=== PATIENT | female | born 1985 | race Caucasian/White ===

== ENCOUNTER 2016-09-14 09:45 | Observation (INO) | payer MEDICAID ==
[2016-09-14] VITALS (12 sets, daily range): BP systolic 109–132; BP diastolic 53–68
[~2016-09-14] VITALS: Ht 167.6 cm; Wt 94.4 kg
[~2016-09-14 09:45] MED LIST: ACHD5005 PO; GLYB5TAB6 PO; IBP600T1 PO; METF-380 PO; METF1000 PO; PREN1TAB71 PO; SERT50TA2 PO
[2016-09-14] MEDS ORDERED: ACETAMINOPHEN 500 MG TAB (TYLENOL) PO PRN ×2 (11:45→22:45)
[2016-09-14] MEDS ORDERED: CATHETER FLUSH 10 ML SYR IV PRN (11:45)
[2016-09-14] MEDS ORDERED: LACTATED RINGERS 1,000 ML IV SCH (11:45)
--- NOTE | 2016-09-14 12:29 | Diagnostic Imaging Report ---
PROCEDURE: US Gallbladder. TECHNIQUE: Multiple real-time grayscale images were obtained over the right upper quadrant in various projections. INDICATION: Right upper quadrant pain. COMPARISON: None available. FINDINGS: The liver is normal in size and echogenicity. There is no focal hepatic mass. The main portal vein is patent with antegrade flow. The gallbladder is distended without gallstones, wall thickening, or pericholecystic fluid. The common bile duct was not visualized. No sonographic Ballard sign. Pancreas is obscured by overlying bowel gas. The right kidney is normal in size. No hydronephrosis, shadowing calculi, or suspicious mass lesion. IMPRESSION: 1. Normal gallbladder. 2. No intrahepatic ductal dilatation. Common bile duct was visualized surrounding bowel gas. 3. Normal right kidney without hydronephrosis. Dictated by: Dictated on workstation # [id number]
[2016-09-14 13:02] LABS: ALANINE AMINOTRANSFERASE 13 U/L (0-55); ALBUMIN 3.3 G/DL (3.2-4.5); ANION GAP 11 MMOL/L (5-14); ASPARTATE AMINO TRANSFERASE 22 U/L (5-34); BILIRUBIN,TOTAL 0.5 MG/DL (0.1-1.0); BLOOD UREA NITROGEN 11 MG/DL (7-18); BUN/CREATININE RATIO 19; CALCIUM 8.8 MG/DL (8.5-10.1); CARBON DIOXIDE 17 MMOL/L (21-32); CHLORIDE 105 MMOL/L (98-107); CREATININE SERUM 0.59 MG/DL (0.60-1.30); GFR ESTIMATED > 60; GLUCOSE 77 MG/DL (70-105); POTASSIUM 4.2 MMOL/L (3.6-5.0); SODIUM 133 MMOL/L (135-145); TOTAL PROTEIN 6.3 G/DL (6.4-8.2)
[2016-09-14] MEDS ORDERED: D5 LR IV SOLUTION 1,000 ML IV SCH (14:00)
[2016-09-14] MEDS ORDERED: HYDROcodone/APAP 5 MG/325 MG (LORTAB) TAB PO ONE (14:00)
[2016-09-14] MEDS ORDERED: ONDANSETRON 4 MG/2 ML (SDV) Z0FRAN IVP PRN (14:00)
[2016-09-14] MEDS: LACTATED RINGERS 1,000 ML IV SCH ×2 (14:15→22:03)
[2016-09-14 16:36] LABS: MEAN CORPUSCULAR HEMOGLOBIN 31 PG (25-34); RED BLOOD COUNT 3.66 10^6/uL (4.35-5.85); WHITE BLOOD COUNT 10.4 10^3/uL (4.3-11.0)
[2016-09-14 16:37] LABS: BASOPHILS % (AUTO) 0 % (0-10); EOSINOPHILS % (AUTO) 0 % (0-10); LYMPHOCYTES # (AUTO) 0.9 X 10^3 (1.0-4.0); LYMPHOCYTES % (AUTO) 9 % (12-44); MEAN CORPUSCULAR HGB CONC 33 G/DL (32-36); MEAN CORPUSCULAR VOLUME 93 FL (80-99); MEAN PLATELET VOLUME 11.3 FL (7.4-10.4); MONOCYTES # (AUTO) 0.6 X 10^3 (0.0-1.0); MONOCYTES % (AUTO) 6 % (0-12); NEUTROPHILS # (AUTO) 8.8 X 10^3 (1.8-7.8); NEUTROPHILS % (AUTO) 85 % (42-75); PLATELET COUNT 151 10^3/uL (130-400); RED CELL DISTRIBUTION WIDTH 14.8 % (10.0-14.5)
[2016-09-14] MEDS ORDERED: hydrOXYzine (VISTARIL) 25 MG CAP PO NR (16:45)
--- NOTE | 2016-09-14 16:49 | History & Physical-OB ---
OB - Chief Complaint & HPI Date Date of Admission: Date of Admission: 09/14/16 Chief Complaint/History OB-Reason for Admission/Chief: RUQ abdominal pain with diarrhea Hx : 4 Hx Para: 3 Expected Date of Delivery: Oct 06, 2016 Gestational Age in Weeks: 36 Gestational Age in Days: 6 Other reason for admission: Patient has been having RUQ pain for the last 2 months with worsening pain last night. She is concerned about her gallbladder because multiple women in her family have had to have it removed. Yesterday she started having diarrhea. Denies any fever or chills. No blood pressure troubles. No blurry vision or swelling or headaches. Denies LOF, Vag bleeding. + FM History of Labs A+, Ab neg, RPR NR, HIV/HEP B neg, Rub Imm, Pap nml cytology HPV Neg, GBS pending Allergies and Home Medications Allergies Coded Allergies: bupropion (Verified Allergy, Unknown, 09/14/16) NERVE AND MUSCLE PAIN naltrexone (Verified Allergy, Unknown, 09/14/16) NERVE AND MUSCLE PAIN Home Medications Glyburide 5 Mg Tablet 5 MG PO DAILY (Reported) Metformin HCl 1,000 Mg Tablet 1,000 MG PO BID (Reported) Vit/Fe Fumarate/Fa 1 Each Tablet #0 1 EACH PO DAILY Prescribed by: JUSTO SPARKS on 01/07/15 1539 Sertraline HCl 50 Mg Tablet 50 MG PO DAILY (Reported) OB - History Hx of Present Care: Yes Ultrasounds: Normal mid trimester US Obstetrical Complications: Gestational Diabetes Medical Complications: None Information Maternal Gestational Diabetes: Yes Obstetrical History Hx : 4 Hx Para: 3 Hx Termination: No Hx Total # of Abortions (Spona: 0 Hx Multiple Gestation: No Hx Stillbirth: No Hx Complication: No Hx Induced Hypertens: No Hx Maternal Gestational Diabet: Yes (this and 2nd ) Delivery History Hx Dystocia: No Hx Large For Gestational Age I: No Hx Small for Gestational Age I: No Hx Section: No Hx Vaginal Delivery Post C-Sec: No Hx Blood Disorders: Yes (Anemia- on iron) Adverse Rxn to Tranfusion: No Patient Past Medical History PMH: Gestational DM - suspect pre-existing DM Type 2 hx of cervical dysplasia s/p LEEP 2003 PSH: D&C 2003 Social History/Family History HIV/AIDS: No Recent Infectious Disease Expo: Yes Sexually Transmitted Disease: No Immunizations Tetanus Booster (TDap): Less than 5yrs Date of Influenza Vaccine: Jul 27, 2016 Rubella: immune RPR/VDRL: Negative GBS Status: Unknown (pending from clinic) HBsAG: Negative OB - Admission Exam Physical Exam Vitals: Vital Signs 09/14/16 10:01 Temp 99.1 Pulse 93 Resp 18 B/P 121/67 Pulse Ox 98 O2 Delivery Room Air HEENT: Comment: (dry mucus membranes) Heart: Rhythm Normal Lungs: Clear Abdomen: Other (RUQ ttp, nml bowel sounds) Extremities: Normal Cervical Dilatation: 3cm (per nurse check) Membranes: Intact Accelerations: Accelerations Present Decelerations: Variable Decelerations (x2) Short Term Variability: Present 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30 MG/DL Eosinophils # (Auto) 0.0 0.0-0.3 10^3/uL Eosinophils (%) (Auto) 0 0-10 % Estimat Glomerular Filtration Rate > 60 Glucose Level 77 70-105 MG/DL Hematocrit 34 L 35-52 % Hemoglobin 11.3 L 11.5-16.0 G/DL Lymphocytes # (Auto) 0.9 L 1.0-4.0 X 10^3 Lymphocytes (%) (Auto) 9 L 12-44 % Mean Corpuscular Hemoglobin 31 25-34 PG Mean Corpuscular Hemoglobin Concent 33 32-36 G/DL Mean Corpuscular Volume 93 80-99 FL Mean Platelet Volume 11.3 H 7.4-10.4 FL Monocytes # (Auto) 0.6 0.0-1.0 X 10^3 Monocytes (%) (Auto) 6 0-12 % Neutrophils # (Auto) 8.8 H 1.8-7.8 X 10^3 Neutrophils (%) (Auto) 85 H 42-75 % Platelet Count 151 130-400 10^3/uL Potassium Level 4.2 3.6-5.0 MMOL/L Red Blood Count 3.66 L 4.35-5.85 10^6/uL Red Cell Distribution Width 14.8 H 10.0-14.5 % Sodium Level 133 L 135-145 MMOL/L Total Bilirubin 0.5 0.1-1.0 MG/DL Total Protein 6.3 L 6.4-8.2 G/DL White Blood Count 10.4 4.3-11.0 10^3/uL OB - Assessment/Plan/Diagnosis Assessment Assessment: observation, labor, other (Gestational DM) Plan Plan: Expectant Management Other Plan 30 yo @ 36.6 wga here for RUQ abd pain, diarrhea and ctxs, patient with Gestational DM Plan RUQ abdominal pain - Neg RUQ US for gallbladder disease - Tylenol for pain control - Nml CMP Contractions - IV hydration, encourage PO hydration - Visteril 25 mg x 1 dose Gestational DM - Start home medications 36 week - CEFM - GBS pending from clinic, if patient goes to active labor with start treatment with Ampicillin - Recheck cervix in AM Dispo: Admit for observation for contractions with variables FEN: ADA diet DVT PPX: SCDs Copy Copies To 1: HENRIETTA ORTIZ HOLLY R MD Sep 14, 2016 16:49
[2016-09-14] MEDS ORDERED: metFORMIN 500 MG (GLUCOPHAGE) TAB PO SCH (17:00)
[2016-09-14] MEDS ORDERED: ACETAMINOPHEN 325 MG TABLET/CAPLET (TYLENOL) ONE (22:28)
[2016-09-15 01:10] VITALS: BP 108/58
[2016-09-15 04:30] VITALS: BP 107/57
[2016-09-15] MEDS: LACTATED RINGERS 1,000 ML IV SCH (06:30)
[2016-09-15] MEDS ORDERED: glyBURIDE 5 MG (MICRONASE) TAB PO SCH (07:00)
[2016-09-15] MEDS ORDERED: PRENATAL VITAMIN 1 EA TAB PO SCH (07:00)
[2016-09-15] MEDS ORDERED: SERTRALINE 50 MG (ZOLOFT) TABLET PO SCH (09:00)
--- NOTE | 2016-09-15 11:54 | Discharge Summary ---
Diagnosis/Chief Complaint Date of Admission Sep 14, 2016 at 17:51 Date of Discharge Sep 15, 2016 at 09:34 Admission Diagnosis Admission Diagnosis Right Upper Quadrant pain Viral Gastroenteritis Contractions Gestational Diabetes Discharge Diagnosis See above Chief Complaint/HPI Chief Complaint/HPI 30 yo @36.6 wga presented to Triage with contraction and RUQ abdominal pain. States that she has had diarrhea the last couple days. The pain comes and goes and she is not sure if it is related to eating or not. Denies any LOF, vag bleeding. + ctx and FM. Discharge Summary-Simple/Stand Procedures NST BPP: Normal Discharge Physical Examination Allergies: Coded Allergies: bupropion (Verified Allergy, Unknown, 09/14/16) NERVE AND MUSCLE PAIN naltrexone (Verified Allergy, Unknown, 09/14/16) NERVE AND MUSCLE PAIN Vitals & I&Os Vital Sign - Last 12Hours Date Time Temp Pulse Resp B/P Pulse Ox O2 Delivery O2 Flow Rate FiO2 09/15/16 09:34 09/15/16 04:30 99.1 101 18 97 Room Air Intake and Output 09/15/16 00:00 Intake Total 2000 ml Balance 2000 ml General Appearance: Alert, Oriented X3, Cooperative, No Acute Distress Respiratory: Clear to Auscultation, Normal Air Movement Cardiovascular: Regular Rate, Normal S1, Normal S2, No Murmurs Abdominal: Normal Bowel Sounds, Soft, No Tenderness, No Hepatosplenomegaly, Other (Gravid) Extremities: No Clubbing, No Cyanosis, No Edema, No Tenderness/Swelling Neuro: Normal Gait, Normal Speech, Reflexes 2+ Psych/Mental Status: Mental Status NL, Mood NL Hospital Course See final discharge diagnosis. Pending Labs None Discussion & Recommendations 30 yo G4 @ 37 wga at time of discharge. Patient was monitored overnight. CEFM showed 2 episodes of variable decelerations that resolved spontaneously. RUQ US normal. Diarrhea and abdominal pain resolved. Ctxs 3-4 an hour which is her baseline. Cervix is unchanged. Likely had viral gastroenteritis that caused contractions. Discussed the importance of hydration and RTC precautions. Has close follow up with Dr Ortiz on Monday Discharge Condition at discharge improved Instructions to patient/family Please see electonic discharge instructions given to patient. Discharge Medications Reviewed and agree with Discharge Medication list on patient's Discharge Instruction sheet Copy Copies To 1: HENRIETTA ORTIZ HOLLY R MD Sep 15, 2016 11:54
== END 2016-09-15 09:28 | disposition home or self-care (01) ==
LOC: LDRP 09:45 → WSo 09:46 → LDRP 09:46 → WSo 16:25 → UNDOADMOB 17:51 → LDRP 17:51 → UNDODISOB 09-15 09:34 → EDSTATUS 09-16 13:49
PROVIDERS: ADMIT Family Medicine; ATTEND Family Medicine
DX: O98.513 Other viral diseases complicating pregnancy, third trimester (principal); A08.4 Viral intestinal infection, unspecified; O60.03 Preterm labor without delivery, third trimester; O24.435 Gestational diabetes mellitus in puerperium, controlled by oral hypoglycemic drugs; Z3A.36 36 weeks gestation of pregnancy
CPT/HCPCS: 36415; 76705; 80053; 85025; 96361; 96374; 99211; G0378

== ENCOUNTER 2016-09-19 08:31 | Outpatient (RCR) | payer MEDICAID ==
[2016-09-01 13:43] VITALS: BP 105/66
== END 2016-09-19 10:49 | disposition home or self-care (01) ==
PROVIDERS: ATTEND Family Medicine
DX: O26.892 Other specified pregnancy related conditions, second trimester (principal); M25.551 Pain in right hip; M25.552 Pain in left hip; Z3A.25 25 weeks gestation of pregnancy

== ENCOUNTER 2016-09-22 11:55 | Outpatient (RCR) | payer MEDICAID ==
[2016-08-18 13:25] VITALS: BP 112/53
--- NOTE | 2016-08-18 13:26 | Diagnostic Imaging Report ---
OB ultrasound. INDICATION: Gestational diabetes. FINDINGS: heart rate is 146 beats per minute. The fetus is in cephalic presentation. The placenta is anterior. There is no placenta previa. Amniotic fluid index is 14 cm. Biophysical profile criteria are met with total score of 8 out of 8. IMPRESSION: Biophysical profile score is 8 out of 8. Dictated by: Dictated on workstation # [id number]
[2016-08-25 12:55] VITALS: BP 120/62
--- NOTE | 2016-08-25 13:46 | Diagnostic Imaging Report ---
OB ultrasound. Biophysical profile. INDICATION: Gestational diabetes. FINDINGS: heart rate is 142 beats per minutes. Total amniotic fluid index is 11.7 cm. Biophysical profile criteria are met with total score of 8 out of 8. IMPRESSION: Total biophysical profile score of 8 out of 8. Dictated by: Dictated on workstation # [id number]
--- NOTE | 2016-09-01 13:11 | Diagnostic Imaging Report ---
Indication: Gestational diabetes. Comparison: 08/25/2016. Discussion: Limited transabdominal sonographic evaluation of the gravid uterus was performed. Single live intrauterine is again demonstrated. presentation is cephalic. heart rate measures 146 beats per minute. Normal amniotic fluid index measuring 9.4 cm. Normal breathing, movement, posture and tone. Normal biophysical profile score of 8/8, unchanged. Impression: 1. Normal biophysical profile score of 8/8, unchanged. Dictated by: Dictated on workstation # [id number]
[2016-09-08 13:34] VITALS: BP 121/59
--- NOTE | 2016-09-08 18:02 | Diagnostic Imaging Report ---
OB ultrasound. INDICATION: Biophysical profile assessment. Gestational diabetes. FINDINGS: The heart rate is 144 beats per minute. The position is cephalic. The placenta is anterior. The amniotic fluid index is 9.8 cm. The cervix appears long and closed at 3.6 cm. Biophysical profile criteria are fully met with total score of 8 out of 8. IMPRESSION: Biophysical profile score is 8 out of 8. Dictated by: Dictated on workstation # [id number]
--- NOTE | 2016-09-15 12:33 | Diagnostic Imaging Report ---
OB ultrasound. Biophysical profile. INDICATION: Gestational diabetes. FINDINGS: The radiologic technologist mammogram reports active cardiac motion. The cardiac heart rate, however, was not documented on this exam. The total EVELYNE is 10.6. presentation is cephalic. The placenta is anterior in location. The biophysical profile criteria were met for a total score of 8 out of 8. IMPRESSION: Total biophysical profile score is 8 out of 8. Dictated by: Dictated on workstation # [id number]
[~2016-09-22] VITALS: Ht 167.6 cm; Wt 95.7 kg
[2016-09-22 12:45] VITALS: BP 115/61
--- NOTE | 2016-09-22 15:29 | Diagnostic Imaging Report ---
EXAMINATION: OB ultrasound and biophysical profile. INDICATION: Gestational diabetes. FINDINGS: The heart rate is 135 beats per minute. The amniotic fluid index is 13.5 cm. The criteria for biophysical profile are all met with total biophysical profile score of 8 out of 8. The position is cephalic. The placenta is anterior with no placenta previa. growth parameters are: biparietal diameter at 39 weeks and 6 days, head circumference at 38 weeks, abdominal circumference at 41 weeks and femur length at 39 weeks and 5 days. These average at 39 weeks and 5 days. This compares to gestational age of 39 weeks based on first trimester ultrasound KHADAR of 09/29/2016. The abdominal circumference is two weeks higher than the gestational age and is near the upper limits of normal. Estimated weight is 4 kg. IMPRESSION: Total biophysical profile is 8 out of 8. The growth parameters, particularly the abdominal circumference, is larger than the gestational age, near the upper limits of normal. Dictated by: Dictated on workstation # [id number]
[2016-09-30] MEDS ORDERED: IBUP-1773 PO (10:24)
[2016-09-30] MEDS ORDERED: HYDR-3812 PO (10:24)
[2016-09-30] MEDS ORDERED: FERR-74 PO (10:24)
[2016-10-03] MEDS ORDERED: CEPH-507 PO (21:33)
== END 2016-11-16 | disposition home or self-care (01) ==
LOC: RAD 11:55
PROVIDERS: ATTEND Family Medicine
DX: O24.415 Gestational diabetes mellitus in pregnancy, controlled by oral hypoglycemic drugs (principal)
CPT/HCPCS: 59025; 76805; 76819

== ENCOUNTER 2016-09-29 05:34 | Inpatient (IN) | payer MEDICAID ==
[2016-09-29] VITALS (22 sets, daily range): BP systolic 91–121; BP diastolic 8–67
[~2016-09-29] VITALS: Ht 167.6 cm; Wt 1.2 kg
[2016-09-29] MEDS ORDERED: D5 LR IV SOLUTION 1,000 ML IV SCH ×2 (06:16→07:30)
[2016-09-29] MEDS ORDERED: MINERAL OIL CONCENTRATE 99.9% 15 ML UDC TOP PRN (06:30)
[2016-09-29 06:45] LABS: BASOPHILS % (AUTO) 0 % (0-10); EOSINOPHILS # (AUTO) 0.1 10^3/uL (0.0-0.3); EOSINOPHILS % (AUTO) 1 % (0-10); LYMPHOCYTES # (AUTO) 1.9 X 10^3 (1.0-4.0); LYMPHOCYTES % (AUTO) 23 % (12-44); MEAN CORPUSCULAR HEMOGLOBIN 31 PG (25-34); MEAN CORPUSCULAR HGB CONC 33 G/DL (32-36); MEAN CORPUSCULAR VOLUME 93 FL (80-99); MEAN PLATELET VOLUME 10.5 FL (7.4-10.4); MONOCYTES # (AUTO) 0.6 X 10^3 (0.0-1.0); MONOCYTES % (AUTO) 7 % (0-12); NEUTROPHILS # (AUTO) 5.5 X 10^3 (1.8-7.8); NEUTROPHILS % (AUTO) 69 % (42-75); PLATELET COUNT 172 10^3/uL (130-400); RED BLOOD COUNT 3.34 10^6/uL (4.35-5.85); RED CELL DISTRIBUTION WIDTH 14.3 % (10.0-14.5)
[2016-09-29] MEDS ORDERED: D5 LR IV SOLUTION 1,000 ML IV ONE (07:20)
[2016-09-29] MEDS ORDERED: OXYTOCIN/NORMAL SALINE 500 ML IV ONE (07:20)
[2016-09-29] MEDS ORDERED: OXYTOCIN/NORMAL SALINE 500 ML IV SCH ×2 (07:25→13:09)
[2016-09-29] MEDS ORDERED: SUFENTA 1 MCG/ML BUPIVA 0.1% 100 ML ONE (07:47)
[2016-09-29] MEDS ORDERED: fentaNYL INJECTION 100 MCG/2 ML AMP ONE (08:21)
[2016-09-29] MEDS ORDERED: BUPIVACAINE 0.25% 30 ML (SENSORCAINE) VIAL ONE (08:21)
[2016-09-29] MEDS ORDERED: LACTATED RINGERS 1,000 ML IV ONE ×2 (08:56)
--- NOTE | 2016-09-29 08:56 | History & Physical-OB ---
OB - Chief Complaint & HPI Date Date of Admission: Date of Admission: Sep 29, 2016 at 06:05 Chief Complaint/History OB-Reason for Admission/Chief: Induction of Labor Hx : 4 Hx Para: 3 Expected Date of Delivery: Oct 06, 2016 Gestational Age in Weeks: 39 Gestational Age in Days: 0 Indication for induction: other (Gestational Diabetes) History of Labs A+ RI, HIV-, Hep B-, RPR- Pap neg, HPV neg GDM well controlled on po medications; normal bi-weekly NST/weekly NST since 32 weeks; required insulin with last , baby weighed 8#10 US 09/22/16 - EFW 4kg, normal EVELYNE Allergies and Home Medications Allergies Coded Allergies: bupropion (Verified Allergy, Unknown, 09/14/16) NERVE AND MUSCLE PAIN naltrexone (Verified Allergy, Unknown, 09/14/16) NERVE AND MUSCLE PAIN Home Medications Glyburide 5 Mg Tablet 5 MG PO DAILY (Reported) Metformin HCl 1,000 Mg Tablet 1,000 MG PO BID (Reported) Vit/Fe Fumarate/Fa 1 Each Tablet #0 1 EACH PO DAILY Prescribed by: JUSTO SPARKS on 01/07/15 1539 Sertraline HCl 50 Mg Tablet 50 MG PO DAILY (Reported) OB - History Hx of Present Care: Yes Ultrasounds: Normal mid trimester US Obstetrical Complications: Gestational Diabetes (controlled on po Metformin and Glyburide) Medical Complications: Musculoskeletal (pelvic pain requiring PT during ) Information Induced Hypertension: No Maternal Gestational Diabetes: Yes Hemorrhage: No Obstetrical History Hx : 4 Hx Para: 3 Hx # Term Pregnancies: 3 Number of Living Children: 3 Hx Termination: No Hx Multiple Gestation: No Hx Stillbirth: No Hx Complication: No Hx Induced Hypertens: No Hx Maternal Gestational Diabet: Yes (currently (controlled w/ po meds); 3rd required insulin) Delivery History Hx Dystocia: No Hx Forceps Assisted Delivery: No Hx Vacuum Extraction Assisted: No Hx Placenta Abnormality: No Hx Distress: No Hx Large For Gestational Age I: No Hx Small for Gestational Age I: No Hx Section: No Hx Vaginal Delivery Post C-Sec: No Hx Blood Disorders: Yes (Anemia- on iron) Adverse Rxn to Tranfusion: No Patient Past Medical History PMH: Gestational DM Prediabetes outside of hx of cervical dysplasia s/p LEEP 2003 PSH: D&C 2003 Social History/Family History HIV/AIDS: No Recent Infectious Disease Expo: No Sexually Transmitted Disease: No Alcohol Use: Denies Use Recreational Drug Use: No Immunizations Hepatitis A: No Hepatitis B: No Tetanus Booster (TDap): Less than 5yrs (08/01/16) Date of Influenza Vaccine: Jul 18, 2016 Rubella: immune RPR/VDRL: Negative GBS Status: Negative HBsAG: Negative OB - Admission Exam Physical Exam Vitals: Vital Signs 09/29/16 09/29/16 07:45 08:00 Temp 98.1 Pulse 96 Resp 16 B/P 115/58 O2 Delivery Room Air Abdomen: Gravid Cervical Dilatation: 4cm Effacement: 75% Station: -2 Membranes: Intact Accelerations: Accelerations Present Decelerations: No Decelerations Tristan Scoring Tool (Modified) Tristan Score: 12 Labs Laboratory Tests Test 09/29/16 06:30 09/29/16 07:18 Range/Units Basophils # (Auto) 0.0 0.0-0.1 10^3/uL Basophils (%) (Auto) 0 0-10 % Eosinophils # (Auto) 0.1 0.0-0.3 10^3/uL Eosinophils (%) (Auto) 1 0-10 % Hematocrit 31 L 35-52 % Hemoglobin 10.2 L 11.5-16.0 G/DL Lymphocytes # (Auto) 1.9 1.0-4.0 X 10^3 Lymphocytes (%) (Auto) 23 12-44 % Mean Corpuscular Hemoglobin 31 25-34 PG Mean Corpuscular Hemoglobin Concent 33 32-36 G/DL Mean Corpuscular Volume 93 80-99 FL Mean Platelet Volume 10.5 H 7.4-10.4 FL Monocytes # (Auto) 0.6 0.0-1.0 X 10^3 Monocytes (%) (Auto) 7 0-12 % Neutrophils # (Auto) 5.5 1.8-7.8 X 10^3 Neutrophils (%) (Auto) 69 42-75 % Platelet Count 172 130-400 10^3/uL Red Blood Count 3.34 L 4.35-5.85 10^6/uL Red Cell Distribution Width 14.3 10.0-14.5 % White Blood Count 8.0 4.3-11.0 10^3/uL Glucometer 101 70-110 MG/DL OB - Assessment/Plan/Diagnosis Assessment Assessment: induction of labor (at 39 weeks for GDM) Plan Plan: Induction Induction Method: per Pitocin Protocol Other Plan Gestational DM - will monitor BS q2h during labor HENRIETTA ORTIZ DO Sep 29, 2016 08:56
[2016-09-29] MEDS ORDERED: BUPIVACAINE 0.25% 30 ML (SENSORCAINE) VIAL INJ ONE (09:00)
[2016-09-29] MEDS ORDERED: EPIDURAL (SUFENTANIL 1 MCG/ML BUPIVACAINE 0.1%) 100 ML EPI PRN (09:00)
[2016-09-29] MEDS ORDERED: ONDANSETRON 4 MG/2 ML (SDV) Z0FRAN IV PRN (09:00)
[2016-09-29] MEDS ORDERED: NALOXONE 0.4 MG/ML 1 ML (NARCAN) VIAL IV PRN (09:00)
[2016-09-29] MEDS ORDERED: fentaNYL INJECTION 100 MCG/2 ML AMP INJ ONE (09:00)
[2016-09-29] MEDS ORDERED: LIDOCAINE/EPI 1%-1:200,000 (XYLOCAINE) 30 ML VIAL ONE (11:35)
--- NOTE | 2016-09-29 12:14 | OB Labor & Delivery Record ---
L&D History Date of Service Date of Service: Sep 29, 2016 History Expected Date of Delivery: Oct 06, 2016 Gestational Age in Weeks: 39 Hx : 4 Hx Para: 3 Complications Events: Gestational Diabetes Operative Indications (Cesarea: N/A-Vaginal Delivery Intrapartal Events: None L&D Stage1 Stage One Onset of Labor - Date: Sep 29, 2016 Monitors and Tracing Monitor Mode: External Heart Rate: 145 Vital Signs VS - Last 72 Hours, by Label 09/29/16 09/29/16 09/29/16 09/29/16 06:30 07:45 08:00 08:15 Temp 97.3 98.1 Pulse 110 84 96 98 Resp 18 16 16 16 B/P 119/65 116/57 115/58 121/58 O2 Delivery Room Air Room Air Room Air Room Air 09/29/16 09/29/16 09/29/16 09/29/16 08:30 08:45 09:00 09:15 Pulse 105 90 96 96 Resp 16 16 16 16 B/P 111/67 113/56 118/58 115/59 O2 Delivery Room Air Room Air Room Air Room Air 09/29/16 09/29/16 09/29/16 09/29/16 09:30 09:45 10:00 10:15 Temp 98.4 Pulse 100 83 81 Resp 16 16 16 B/P 111/53 93/51 91/52 O2 Delivery Room Air Room Air Room Air Room Air 09/29/16 09/29/16 09/29/16 10:30 10:45 11:00 Pulse 83 80 Resp 16 16 B/P 98/51 101/52 O2 Delivery Room Air Room Air Room Air Rupture of Membranes Spontaneous Ruture of Membrane: No (AROM) Amniotic Membrane Rupture Time: 09 Amniotic Membrane Fluid Desc.: Clear L&D Stage2 Stage Two Stage II Date: Sep 29, 2016 Monitors and Tracing Monitor Mode: External Heart Rate: 145 Position: Left Occiput Anterior Presentation: Vertex Cord Descript/Complications Cord Vessel Description: 3 Vessels Delivery Type Delivery Method: Spontaneous Vaginal Anterior Shoulder: Right Episiotomy/Perineal Laceration Laceraction(s)/Extensions: No Condition of Delivery Delivery Date & Time: 09/29/16 1152 1 minute Comment: 8 5 minute Comment: 9 Condition of Infant Condition of Infant: Living Exam: No Observed Abnormalities Delivered without complications; vigorous at ; BW 8#12 Resuscitation Resuscitation: N/A - Spontaneous Resp L&D Stage3 Stage Three Stage III Date: Sep 29, 2016 Pictocin Pitocin Administration mu/min: 10 Pitocin ml/hr: 10 Pitocin Administration Comment: Pitocin started after delivery of the placenta Placenta Delivery Placenta Delivery: Spontaneous Delivery Summary Summary Vaginal blood loss >500ml: No 75mL Attending at delivery: Chang Condition of Delivery Condition of Mother Doing well after delivery Condition of Infant (s) Doing well after delivery HENRIETTA ORTIZ DO Sep 29, 2016 12:14
[2016-09-29] MEDS ORDERED: BENZOCAINE/MENTHOL (DERMOPLAST) 56 ML CAN TP PRN (13:15)
[2016-09-29] MEDS ORDERED: WITCH HAZEL(TUCKS) 40 EA JAR TOP PRN (13:15)
[2016-09-29] MEDS: IBUPROFEN 600 MG (MOTRIN) TAB PO SCH ×2 (13:18→18:30)
[2016-09-29] MEDS ORDERED: CATHETER FLUSH 10 ML SYR IV SCH ×2 (14:00)
[2016-09-29] MEDS ORDERED: HYDROcodone/APAP 5 MG/325 MG (LORTAB) TAB ONE (16:43)
[2016-09-29] MEDS ORDERED: HYDROcodone/APAP 5 MG/325 MG (LORTAB) TAB PO PRN (17:00)
[2016-09-29] MEDS: HYDROcodone/APAP 5 MG/325 MG (LORTAB) TAB PO PRN (22:42)
[2016-09-30 00:04] VITALS: BP 106/65
[2016-09-30] MEDS: IBUPROFEN 600 MG (MOTRIN) TAB PO SCH ×3 (00:04→12:36)
[2016-09-30 04:05] VITALS: BP 98/61
[2016-09-30 06:35] LABS: BASOPHILS % (AUTO) 0 % (0-10); EOSINOPHILS # (AUTO) 0.1 10^3/uL (0.0-0.3); EOSINOPHILS % (AUTO) 1 % (0-10); LYMPHOCYTES % (AUTO) 24 % (12-44); MEAN CORPUSCULAR HEMOGLOBIN 30 PG (25-34); MEAN CORPUSCULAR HGB CONC 33 G/DL (32-36); MEAN CORPUSCULAR VOLUME 93 FL (80-99); MEAN PLATELET VOLUME 10.5 FL (7.4-10.4); MONOCYTES # (AUTO) 0.6 X 10^3 (0.0-1.0); MONOCYTES % (AUTO) 7 % (0-12); NEUTROPHILS # (AUTO) 5.8 X 10^3 (1.8-7.8); NEUTROPHILS % (AUTO) 68 % (42-75); PLATELET COUNT 163 10^3/uL (130-400); RED BLOOD COUNT 3.28 10^6/uL (4.35-5.85); RED CELL DISTRIBUTION WIDTH 14.4 % (10.0-14.5); WHITE BLOOD COUNT 8.5 10^3/uL (4.3-11.0)
[2016-09-30 08:30] VITALS: BP 108/66
[2016-09-30] MEDS: HYDROcodone/APAP 5 MG/325 MG (LORTAB) TAB PO PRN (08:31)
[2016-09-30] MEDS ORDERED: SERTRALINE 50 MG (ZOLOFT) TABLET PO SCH (09:00)
--- NOTE | 2016-09-30 09:39 | Anesthesia-Regional Post-Op ---
Regional Patient Condition Mental Status: Alert, Oriented x3 Circulation: Same as Pre-Op Headache: Absent Sensation: Full Recovery Motor Block: Absent Post Op Complications Complications None Follow Up Care/Instructions Patient Instructions None needed. Anesthesia/Patient Condition Patient is doing well, no complaints, stable vital signs, no apparent adverse anesthesia problems. No complications reported per nursing. D/C home per [facility] Criteria: ABDELRAHMAN Singh DO Sep 30, 2016 09:39
[2016-09-30] MEDS ORDERED: FERR-74 PO (10:24)
[2016-09-30] MEDS ORDERED: HYDR-3812 PO (10:24)
[2016-09-30] MEDS ORDERED: IBUP-1773 PO (10:24)
--- NOTE | 2016-09-30 10:26 | Discharge Summary ---
Diagnosis/Chief Complaint Date of Admission Sep 29, 2016 at 6:05 am Date of Discharge Sep 30, 2016 Admission Diagnosis Admission Diagnosis A+ RI GDM well controlled on po medications; normal bi-weekly NST/weekly NST since 32 weeks; required insulin with last , baby weighed 8#10 US 09/22/16 - EFW 4kg, normal EVELYNE Discharge Diagnosis s/p spontaneous vaginal delivery GDMA2- discussed repeat testing at 6 weeks and future need for screening asymptomatic anemia- iron daily Chief Complaint/HPI Chief Complaint/HPI Pt admitted to hospital for IOL at 39 weeks due to GDMA2. Discharge Summary-Simple/Stand Procedures Spontaneous vaginal delivery Discharge Physical Examination Allergies: Coded Allergies: bupropion (Verified Allergy, Unknown, 09/14/16) NERVE AND MUSCLE PAIN naltrexone (Verified Allergy, Unknown, 09/14/16) NERVE AND MUSCLE PAIN Vitals & I&Os Vital Sign - Last 12Hours Date Time Temp Pulse Resp B/P Pulse Ox O2 Delivery O2 Flow Rate FiO2 09/30/16 08:30 98.2 70 18 108/66 98 Room Air General Appearance: Alert, No Acute Distress Respiratory: Clear to Auscultation, Normal Air Movement Cardiovascular: Regular Rate, No Murmurs Abdominal: Normal Bowel Sounds, Other (fundus firm below umbilicus) Neuro: Normal Speech Hospital Course See final discharge diagnosis. Labs Laboratory Tests Test 09/29/16 06:30 09/29/16 07:18 09/29/16 10:40 09/30/16 06:03 Range/Units Basophils # (Auto) 0.0 0.0 0.0-0.1 10^3/uL Basophils (%) (Auto) 0 0 0-10 % Eosinophils # (Auto) 0.1 0.1 0.0-0.3 10^3/uL Eosinophils (%) (Auto) 1 1 0-10 % Hematocrit 31 L 31 L 35-52 % Hemoglobin 10.2 L 9.9 L 11.5-16.0 G/DL Lymphocytes # (Auto) 1.9 2.0 1.0-4.0 X 10^3 Lymphocytes (%) (Auto) 23 24 12-44 % Mean Corpuscular Hemoglobin 31 30 25-34 PG Mean Corpuscular Hemoglobin Concent 33 33 32-36 G/DL Mean Corpuscular Volume 93 93 80-99 FL Mean Platelet Volume 10.5 H 10.5 H 7.4-10.4 FL Monocytes # (Auto) 0.6 0.6 0.0-1.0 X 10^3 Monocytes (%) (Auto) 7 7 0-12 % Neutrophils # (Auto) 5.5 5.8 1.8-7.8 X 10^3 Neutrophils (%) (Auto) 69 68 42-75 % Platelet Count 172 163 130-400 10^3/uL Red Blood Count 3.34 L 3.28 L 4.35-5.85 10^6/uL Red Cell Distribution Width 14.3 14.4 10.0-14.5 % White Blood Count 8.0 8.5 4.3-11.0 10^3/uL Glucometer 101 109 70-110 MG/DL Discharge Instructions to patient/family Please see electonic discharge instructions given to patient. Discharge Medications Reviewed and agree with Discharge Medication list on patient's Discharge Instruction sheet Clinical Quality Measures DVT/VTE Risk/Contraindication: Risk Factor Score Per Nursin RFS Level Per Nursing on Admit: 1=Low/No VTE PPX Copy Copies To 1: HENRIETTA ORTIZ BETHANY N MD Sep 30, 2016 10:26 am
--- NOTE | 2016-09-30 10:26 | Discharge Instructions ---
Discharge Inst-Women's Serv Depart Medications New, Converted or Re-Newed RX: RX on Chart New Medications: Ferrous Sulfate (Ferrous Sulfate) 325 Mg Tablet 325 MG PO DAILY@0700 #30 Ref 0 TAB Hydrocodone/Acetaminophen (Hydrocodon -Acetaminophen 5-325) 1 Each Tablet 1-2 TAB PO Q4H PRN MODERATE PAIN #30 Ref 0 TAB Ibuprofen (Ibuprofen) 600 Mg Tablet 600 MG PO Q6H #60 Ref 0 TAB Continued Medications: Vit/Fe Fumarate/Fa ( Vitamin Tablet) 1 Each Tablet 1 EACH PO DAILY #0 TAB Sertraline HCl (Zoloft) 50 Mg Tablet 50 MG PO DAILY TAB Discontinued Medications: Glyburide (Glyburide) 5 Mg Tablet 5 MG PO DAILY TAB Metformin HCl (Metformin HCl) 1,000 Mg Tablet 1000 MG PO BID TAB Follow Up/Instructions Goal/Follow Up: Follow up with Dr. Ortiz in 6 weeks for visit. Activity Activity: Activity as Tolerated (avoid strenuous activity x 2 weeks) Driving Instructions: You May Drive (do not drive while on sedating pain medications) Nothing Inside Vagina: No Douching, No [employer], No Tampons Diet Discharge Diet: Regular Diet Symptoms to Report to : Swelling Increased, Fever Over 101 Degrees F, Pain/ Pressure in Chest, Vaginal Bleeding Increase, Cramps in Feet or Legs, Vaginal Discharge Foul, Dizziness/Fainting, Shortness of Breath For Any Problems or Questions: Contact Your Physician Copies To 1: HENRIETTA ORTIZ BETHANY N MD Sep 30, 2016 10:26 am
[2016-09-30 12:35] VITALS: BP 103/58
[2016-10-01] MEDS ORDERED: FERROUS SULF 325 MG (IRON) TAB PO SCH (07:00)
== END 2016-09-30 16:00 | disposition home or self-care (01) | DRG 774 ==
LOC: LDRP 06:05
PROVIDERS: ADMIT Family Medicine; ATTEND Family Medicine
PROC: 10E0XZZ Delivery of Products of Conception, External Approach (ICD-10-PCS; principal; 2016-09-29)
PROC: 3E033VJ Introduction of Other Hormone into Peripheral Vein, Percutaneous Approach (ICD-10-PCS; 2016-09-29)
DX: O24.415 Gestational diabetes mellitus in pregnancy, controlled by oral hypoglycemic drugs (principal); O99.03 Anemia complicating the puerperium; D64.9 Anemia, unspecified; Z3A.39 39 weeks gestation of pregnancy; Z37.0 Single live birth
CPT/HCPCS: 36415; 82962; 85025; 86850; 86900; 86901

== ENCOUNTER 2016-10-03 18:58 | Emergency (ER) | payer MEDICAID ==
[~2016-10-03] VITALS: Ht 162.6 cm; Wt 86.2 kg
[~2016-10-03 18:58] MED LIST changes: +FERR-74 PO; +HYDR-3812 PO; +IBUP-1773 PO
[2016-10-03] MEDS ORDERED: NS IV 1000 ML 1,000 ML IV ONE (19:35)
[2016-10-03] MEDS ORDERED: IBUPROFEN 800 MG (MOTRIN) TAB PO ONE (19:45)
[2016-10-03] MEDS ORDERED: ACETAMINOPHEN 500 MG TAB (TYLENOL) PO ONE (19:45)
[2016-10-03 19:55] LABS: BASOPHILS % (AUTO) 0 % (0-10); EOSINOPHILS # (AUTO) 0.1 10^3/uL (0.0-0.3); EOSINOPHILS % (AUTO) 1 % (0-10); LYMPHOCYTES # (AUTO) 0.8 X 10^3 (1.0-4.0); LYMPHOCYTES % (AUTO) 11 % (12-44); MEAN CORPUSCULAR HEMOGLOBIN 31 PG (25-34); MEAN CORPUSCULAR HGB CONC 33 G/DL (32-36); MEAN CORPUSCULAR VOLUME 92 FL (80-99); MEAN PLATELET VOLUME 10.2 FL (7.4-10.4); MONOCYTES # (AUTO) 0.4 X 10^3 (0.0-1.0); MONOCYTES % (AUTO) 6 % (0-12); NEUTROPHILS # (AUTO) 5.5 X 10^3 (1.8-7.8); NEUTROPHILS % (AUTO) 82 % (42-75); PLATELET COUNT 170 10^3/uL (130-400); RED BLOOD COUNT 3.39 10^6/uL (4.35-5.85); RED CELL DISTRIBUTION WIDTH 14.3 % (10.0-14.5); WHITE BLOOD COUNT 6.7 10^3/uL (4.3-11.0)
[2016-10-03 20:19] LABS: ALANINE AMINOTRANSFERASE 24 U/L (0-55); ALBUMIN 3.3 G/DL (3.2-4.5); ANION GAP 10 MMOL/L (5-14); ASPARTATE AMINO TRANSFERASE 28 U/L (5-34); BILIRUBIN,TOTAL 0.2 MG/DL (0.1-1.0); BLOOD UREA NITROGEN 8 MG/DL (7-18); BUN/CREATININE RATIO 12; CALCIUM 8.9 MG/DL (8.5-10.1); CARBON DIOXIDE 20 MMOL/L (21-32); CHLORIDE 103 MMOL/L (98-107); CREATININE SERUM 0.67 MG/DL (0.60-1.30); GFR ESTIMATED > 60; GLUCOSE 101 MG/DL (70-105); POTASSIUM 3.7 MMOL/L (3.6-5.0); SODIUM 133 MMOL/L (135-145); TOTAL PROTEIN 5.9 G/DL (6.4-8.2)
[2016-10-03 20:21] LABS: BILIRUBIN,URINE NEGATIVE (NEGATIVE); KETONES,URINE NEGATIVE (NEGATIVE); LEUKOCYTE ESTERASE ,URINE NEGATIVE (NEGATIVE); NITRITE,URINE NEGATIVE (NEGATIVE); PH,URINE 6 (5-9); PROTEIN,URINE 2+ (NEGATIVE); UROBILINOGEN,URINE NORMAL (NORMAL)
[2016-10-03] MEDS ORDERED: IOHEXOL 350 MG/ML 100 ML (OMNIPAQUE 350) VIAL IV ONE (20:30)
[2016-10-03] MEDS ORDERED: NS 100 ML (IVPB) BAG IV ONE (20:30)
[2016-10-03 20:35] LABS: WBC,URINE 0-2 /HPF
--- NOTE | 2016-10-03 20:36 | Diagnostic Imaging Report ---
INDICATION: Four days . Fever, right upper quadrant pain. EXAMINATION: Two-view chest 10/03/2016. FINDINGS: The cardiomediastinal silhouette is unremarkable. The pulmonary vasculature is within normal limits. The lungs and pleural spaces are clear. IMPRESSION: No evidence of an acute cardiopulmonary process. Dictated by: Dictated on workstation # [id number]
--- NOTE | 2016-10-03 20:40 | ED General ---
General Chief Complaint: Fever-Adult/Adol Stated Complaint: FEVER Nursing Triage Note: PT HAD HER BABY VAGINALLY LESS THEN ONE WEEK AGO ET TODAY BEGAN CHILLING AND RUNNING A TEMP OF 103 AT APPX 1730. PT TOOK A HYDROCODONE AT 1700. Nursing Sepsis Screen: Possible Sepsis Risk Source of Information: Patient History of Present Illness Time Seen by Provider: 19:35 Initial Comments PT STATES SHE BEGAN HAVING SEVERE CHILLS AND HAD FEVER OF 103 AT 1730 TONIGHT PT DELIVERED 09/29/16--AND DISMISSED 09/30/16. NORMAL VAGINAL DELIVERY BY DR. ORTIZ PT IS NOT PT HAS NO BREAST COMPLAINTS NORMAL LOCHIA WITHOUT ANY ODOR. PT C/O RUQ PAIN TODAY. STATES SHE HAD SAME PAIN A WEEK PRIOR TO DELIVERY-- ULTRASOUND OF GALLBLADDER WAS REPORTEDLY NORMAL PT ALSO HAS LOWER ABDOMINAL /PELVIC PAIN--NORMAL POST DELIVERY PAIN, PER PT PT HAS HAD SIGNIFICANT URINARY INCONTINENCE SINCE DELIVERY, BUT NO PAIN / BURNING ON URINATION NO CHEST PAIN, SHORTNESS OF BREATH OR COUGH NO NAUSEA/VOMITING OR DIARRHEA. HAD BM THIS AM--SOMEWHAT CONSTIPATED PT TOOK HYDROCODONE AT 1700 TODAY PCP: DR. ORTIZ Allergies and Home Medications Allergies Coded Allergies: bupropion (Verified Allergy, Unknown, 09/14/16) NERVE AND MUSCLE PAIN naltrexone (Verified Allergy, Unknown, 09/14/16) NERVE AND MUSCLE PAIN Home Medications Cephalexin 500 Mg Capsule #40 500 MG PO QID Prescribed by: NGA CARD on 10/03/16 2133 Ferrous Sulfate 325 Mg Tablet #30 325 MG PO DAILY@0700 Prescribed by: GILSON ESCALANTE on 09/30/16 1024 Hydrocodone/Acetaminophen 1 Each Tablet #30 1-2 TAB PO Q4H PRN PRN MODERATE PAIN Prescribed by: GILSON ESCALANTE on 09/30/16 1024 Ibuprofen 600 Mg Tablet #60 600 MG PO Q6H Prescribed by: GILSON ESCALANTE on 09/30/16 1024 Vit/Fe Fumarate/Fa 1 Each Tablet #0 1 EACH PO DAILY Prescribed by: JUSTO SPARKS on 01/07/15 1539 Sertraline HCl 50 Mg Tablet 50 MG PO DAILY (Reported) Constitutional: see HPI chills fever EENTM: no symptoms reported Respiratory: no symptoms reported Cardiovascular: no symptoms reported Gastrointestinal: RUQ (AND LOWER ABDOMEN/SUPRAPUBIC ) see HPI abdominal pain constipationNo diarrhea, No loss of appetite, No nausea, No vomiting Genitourinary: see HPI incontinence Musculoskeletal: no symptoms reported Skin: no symptoms reported Psychiatric/Neurological: No Symptoms ReportedDenies Headache Hematologic/Lymphatic: No Symptoms Reported Immunological/Allergic: no symptoms reported Past Xljlsxx-Tcjjnd-Igrsec Hx Patient Social History Alcohol Use: Denies Use Recreational Drug Use: No Smoking Status: Former Smoker Type Used: Cigarettes Former Smoker/When Quit: February 08, 2015 Recent Foreign Travel: No Contact w/Someone Who Travel: No Recent Infectious Disease Expo: No Recent Hopitalizations: No Physical Abuse Screen: No Sexual Abuse: No Immunizations Up To Date Tetanus Booster (TDap): Less than 5yrs Date of Influenza Vaccine: Jul 18, 2016 Seasonal Allergies Seasonal Allergies: No Surgeries HX Surgeries: Yes (D&C, LEEP) Respiratory Hx Respiratory Disorders: No Cardiovascular Hx Cardiac Disorders: No Neurological Hx Neurological Disorders: No Reproductive System Hx Reproductive Disorders: Yes (CERVICAL DYSPLASIA) Sexually Transmitted Disease: No HIV/AIDS: No Female Reproductive Disorders: Denies, Ovarian Cyst Genitourinary Hx Genitourinary Disorders: No Gastrointestinal Hx Gastrointestinal Disorders: No Musculoskeletal Hx Musculoskeletal Disorders: No Endocrine Hx Endocrine Disorders: Yes (GESTATIONAL DIABETES) HEENT HX ENT Disorders: No Loss of Vision: Denies Hearing Impairment: Denies Cancer Hx Cancer: No Psychosocial Hx Psychiatric Problems: Yes Behavioral Health Disorders: Depression Integumentary HX Skin/Integumentary Disorder: No Blood Transfusions Hx Blood Disorders: Yes (ANEMIA-ON IRON) Adverse Reaction to a Blood Tr: No Family Medical History Family Medial History: Arthritis Grandparent's (Paternal Grandmother) Colon cancer Grandparent's (Maternal Grandfather) Diabetes mellitus Grandparent's (Maternal Grandmother) Fibrocystic disease of breast Grandparent's (Maternal Grandmother) Hypertension Grandparent's (Maternal Grandmother) Psychosocial problem 19 FATHER (Depression, Anxiety) Grandparent's (Paternal Grandmother-Depression, Anxiety) No Family History of: AIDS Abdominal aortic aneurysm [place]'s disease Alcoholism Alzheimer's disease Aphasia Asthma Cancer of mouth Cardiovascular disease Cataracts Completed stroke Congenital disease Congenital heart disease Coronary thrombosis Cystic fibrosis Deafness or hearing loss Dementia Drug abuse Dysphasia Gastroenteritis Glaucoma Headache disorder Hypercholesterolemia Infertility Kidney disease Myocardial infarction Neoplasm Not obtainable due to adoption Osteoporosis Parkinson's disease Prostate cancer Respiratory disorder Seizure disorder Severe allergy Thyroid disease Tuberculosis Visual disorder Physical Exam Vital Signs Vital Sign - Last 12Hours 10/03/16 19:15 Temp 101.6 Pulse 118 Resp 18 B/P 114/59 Pulse Ox 96 O2 Delivery Room Air Capillary Refill : Less Than 3 Seconds General Appearance: No Apparent Distress WD/WN Other (DOES NOT APPEAR ILL OR TO BE IN ANY DISCOMFORT. WALKS UPRIGHT WITHOUT DIFFICULTY. ) HEENT: PERRL/EOMI Normal ENT Inspection Neck: Full Range of Motion Normal Inspection Non Tender Supple Respiratory: Normal Breath Sounds No Accessory Muscle Use No Respiratory Distress Cardiovascular: Regular Rate, Rhythm No Edema No JVD No Murmur Normal Peripheral Pulses Gastrointestinal: Normal Bowel Sounds No Pulsatile Mass SoftNo Distended, No Guarding, No Hepatomegaly, No Hernia, No Mass, No Rebound, No Splenomegaly, Other (FUNDUS 4 FB'S BELOW UMBILICUS, MILD TENDERNESS TO FUNDUS. ALSO TENDER IN RUQ-MORE TENDER IN RUQ THAN OVER UTERINE FUNDUS. 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 Norm as Tested Skin: Normal Color Warm/Dry Comments BREASTS WITHOUT TENDERNESS OR EVIDENCE OF MASTITIS Progress/Results/Core Measures Results/Orders Lab Results Laboratory Tests Test 10/03/16 19:40 10/03/16 19:55 Range/Units Alanine Aminotransferase (ALT/SGPT) 24 0-55 U/L Albumin 3.3 3.2-4.5 G/DL Alkaline Phosphatase 109 40-136 U/L Amylase Level 80 25-125 U/L Anion Gap 10 5-14 MMOL/L Aspartate Amino Transf (AST/SGOT) 28 5-34 U/L BUN/Creatinine Ratio 12 Basophils # (Auto) 0.0 0.0-0.1 10^3/uL Basophils (%) (Auto) 0 0-10 % Blood Urea Nitrogen 8 7-18 MG/DL Calcium Level 8.9 8.5-10.1 MG/DL Carbon Dioxide Level 20 L 21-32 MMOL/L Chloride Level 103 98-107 MMOL/L Creatinine 0.67 0.60-1.30 MG/DL Eosinophils # (Auto) 0.1 0.0-0.3 10^3/uL Eosinophils (%) (Auto) 1 0-10 % Estimat Glomerular Filtration Rate > 60 Glucose Level 101 70-105 MG/DL Hematocrit 31 L 35-52 % Hemoglobin 10.4 L 11.5-16.0 G/DL Lactic Acid Level 1.0 0.5-2.0 MMOL/L Lipase 15 8-78 U/L Lymphocytes # (Auto) 0.8 L 1.0-4.0 X 10^3 Lymphocytes (%) (Auto) 11 L 12-44 % Mean Corpuscular Hemoglobin 31 25-34 PG Mean Corpuscular Hemoglobin Concent 33 32-36 G/DL Mean Corpuscular Volume 92 80-99 FL Mean Platelet Volume 10.2 7.4-10.4 FL Monocytes # (Auto) 0.4 0.0-1.0 X 10^3 Monocytes (%) (Auto) 6 0-12 % Neutrophils # (Auto) 5.5 1.8-7.8 X 10^3 Neutrophils (%) (Auto) 82 H 42-75 % Platelet Count 170 130-400 10^3/uL Potassium Level 3.7 3.6-5.0 MMOL/L Red Blood Count 3.39 L 4.35-5.85 10^6/uL Red Cell Distribution Width 14.3 10.0-14.5 % Sodium Level 133 L 135-145 MMOL/L Total Bilirubin 0.2 0.1-1.0 MG/DL Total Protein 5.9 L 6.4-8.2 G/DL White Blood Count 6.7 4.3-11.0 10^3/uL Urine Bacteria NEGATIVE /HPF Urine Bilirubin NEGATIVE NEGATIVE Urine Casts NONE /LPF Urine Clarity CLEAR Urine Color YELLOW Urine Crystals NONE /LPF Urine Culture Indicated NO Urine Glucose (UA) NEGATIVE NEGATIVE Urine Ketones NEGATIVE NEGATIVE Urine Leukocyte Esterase NEGATIVE NEGATIVE Urine Mucus SMALL H /LPF Urine Nitrite NEGATIVE NEGATIVE Urine Protein 2+ H NEGATIVE Urine RBC 0-2 /HPF Urine RBC (Auto) 2+ H NEGATIVE Urine Specific [place] 1.015 L 1.016-1.022 Urine Squamous Epithelial Cells 2-5 /HPF Urine Urobilinogen NORMAL NORMAL MG/DL Urine WBC 0-2 /HPF Urine pH 6 5-9 Micro Results Microbiology 10/03/16 Influenza Types A,B Antigen (NAHUM) - Final, Complete My Orders Orders-NGA CARD DO Saline Lock/Iv-Start (10/03/16 19:35) Cbc With Automated Diff (10/03/16 19:35) Comprehensive Metabolic Panel (10/03/16 19:35) Lactic Acid Analyzer (10/03/16 19:35) Ua Culture If Indicated (10/03/16 19:35) Blood Culture (10/03/16 19:35) Chest Pa/Lat (2 View) (10/03/16 19:35) Saline Lock/Iv-Start (10/03/16 19:35) Ns Iv 1000 Ml (Sodium Chloride 0.9%) (10/03/16 19:35) Acetaminophen Tablet (Tylenol Tablet) (10/03/16 19:45) Ibuprofen Tablet (Motrin Tablet) (10/03/16 19:45) Ct Abdomen/Pelvis W (10/03/16 20:19) Iohexol Injection (Omnipaque 350 Mg/Ml 1 (10/03/16 20:30) Ns (Ivpb) (Sodium Chloride 0.9% Ivpb Bag (10/03/16 20:30) Amylase (10/03/16 20:32) Lipase (10/03/16 20:32) Ceftriaxone Injection (Rocephin Injectio (10/03/16 21:30) Rx-Cephalexin Capsule (Rx-Keflex Capsule (10/03/16 21:29) Influenza A And B Antigens (10/03/16 21:32) Medications Given in ED Current Medications Medications Dose Ordered Sig/Mannie Route Start Time Stop Time Status Last Admin Dose Admin Acetaminophen 1,000 mg ONCE ONCE PO 10/03/16 19:45 10/03/16 19:46 DC 10/03/16 20:08 1,000 MG Ceftriaxone Sodium/Sodium Chloride 50 ml @ 100 mls/hr ONCE ONCE IV 10/03/16 21:30 10/03/16 21:59 DC 10/03/16 21:43 100 MLS/HR Ibuprofen 800 mg ONCE ONCE PO 10/03/16 19:45 10/03/16 19:46 DC 10/03/16 20:08 800 MG Iohexol 100 ml ONCE ONCE IV 10/03/16 20:30 10/03/16 20:32 DC 10/03/16 20:35 100 ML Sodium Chloride 1,000 ml @ 0 mls/hr Q0M ONCE IV 10/03/16 19:35 10/03/16 19:36 DC 10/03/16 20:08 1,000 MLS/HR Sodium Chloride 100 ml 100 ml ONCE ONCE IV 10/03/16 20:30 10/03/16 20:32 DC 10/03/16 20:35 100 ML Vital Signs/I&O Vital Sign - Last 12Hours 10/03/16 10/03/16 19:15 22:51 Temp 101.6 99.0 Pulse 118 73 Resp 18 18 B/P 114/59 Pulse Ox 96 99 O2 Delivery Room Air Blood Pressure Mean: 77 Progress Note : Progress Note UNEVENTFUL ER STAY Diagnostic Imaging Comments CXR--NO ACUTE PROCESS, PER RADIOLOGIST REPORT @ 2047 CT ABDOMEN/PELVIS--NO ACUTE PROCESS, DISTENDED GB WITHOUT SURROUNDING INFLAMMATORY CHANGES, NORMAL POST APPEARANCE OF UTERUS.--PER RADIOLOGIST REPORT @ 2119 Reviewed: Reviewed by Me Departure Communication Progress Notes 2119--SPOKE WITH DR. ORTIZ, ADVISES TO START PT ON KEFLEX 500 MG QID AND SEND HOME, AND SOMEONE FROM OFFICE WILL CALL PT TOMORROW AND CHECK ON HER. Impression Impression: Primary Impression: POST FEVER OF UNDETERMINED ETIOLOGY Additional Impressions: RUQ pain Lower abdominal pain Disposition: HOME, SELF-CARE Condition: Stable Departure-Patient Inst. Referrals: HENRIETTA ORTIZ DO (PCP/Family) Primary Care Physician Patient Instructions: Acute Abdomen (Belly Pain), Fever, Adult (DC) Add. Discharge Instructions: LOTS OF CLEAR LIQUIDS-- TYLENOL AND MOTRIN NEEDED FOR PAIN OR FEVER DR. ORTIZ'S OFFICE WILL CALL YOU TOMORROW TO CHECK ON YOU All discharge instructions reviewed with patient and/or family. Voiced understanding. Scripts Cephalexin (Keflex)500 Mg [id number] Mg PO QID #40 CAP Prov:NGA CARD DO 10/03/16 NGA CARD DO Oct 03, 2016 20:40
[2016-10-03 21:02] LABS: AMYLASE 80 U/L (25-125); LIPASE 15 U/L (8-78)
--- NOTE | 2016-10-03 21:19 | Diagnostic Imaging Report ---
PROCEDURE: CT abdomen and pelvis with contrast. TECHNIQUE: Multiple contiguous axial images were obtained through the abdomen and pelvis after administration of intravenous contrast. INDICATION: Right upper quadrant pain for 4 days, 4 days ago. Pain started about a week before delivery. Findings: The liver and spleen demonstrate no acute abnormality. The gallbladder is distended but no surrounding inflammatory change is appreciated. The pancreas, adrenal glands and kidneys are unremarkable. Within the anterior abdomen there is diastases of the rectus abdominis muscles with secondary protrusion of the large and small bowel loops anteriorly perhaps due to the recent but clinical followup could be performed as warranted. No obstructive process is seen within the bowel loops. There are findings of mild constipation. The uterus is diffusely enlarged, likely due to the recent status. Some fluid is noted within the endometrial canal. There are several prominent vessels throughout the pelvis consistent with the recent , as well. There is no significant free fluid within the pelvis. The ovaries are not well seen. The appendix is not appreciated. No acute osseous abnormality is seen. Diastases at the pubic symphysis consistent with a recent , as well. Impression: 1. Diffusely enlarged uterus consistent with recent status. If there is focal pelvic pain, sonography could much better characterize the uterus and other pelvic structures. No significant free fluid seen. 2. Findings of constipation. 3. The appendix was not visualized but no inflammation seen in the right lower quadrant. 4. Other incidental findings as discussed above. Dictated by: Dictated on workstation # [id number]
[2016-10-03] MEDS ORDERED: RX-CEPHALEXIN (KEFLEX) 250 MG CAP PPK#4 PO STA (21:29)
[2016-10-03] MEDS ORDERED: cefTRIAXone INJECTION 1,000 MG in NORMAL SALINE (BAXTER MINI) 50 ML IV ONE (21:30)
[2016-10-03] MEDS ORDERED: CEPH-507 PO (21:33)
[2016-10-03 22:51] VITALS: BP 117/52
== END 2016-10-03 22:55 | disposition home or self-care (01) ==
LOC: EDUNIT# 18:58 → ER 18:59
DX: O86.4 Pyrexia of unknown origin following delivery (principal); R10.11 Right upper quadrant pain; R10.30 Lower abdominal pain, unspecified; Z87.891 Personal history of nicotine dependence
CPT/HCPCS: 36415; 71020; 74177; 80053; 81000; 82150; 83605; 83690; 85025; 87040; 87804; 96374

== ENCOUNTER → 2017-01-28 | Outpatient (CLI) | payer SELFPAY ==
[~2017-01-28] MED LIST changes: +CEPH-507 PO
--- NOTE | 2017-01-28 15:24 | Diagnostic Imaging Report ---
PROCEDURE: MRI lumbar spine. TECHNIQUE: Multiplanar, multisequence MRI of the lumbar spine was performed without contrast. INDICATION: Bilateral hip and leg pain. COMPARISON: None FINDINGS: BONE MARROW: Unremarkable CONUS MEDULLARIS: Normal L5-S1: There is moderate degenerative disc space narrowing and loss of signal. There is moderate central disc protrusion with an annular tear. There is no significant central or foraminal stenosis. L4-5: There is moderate degenerative disc disease with disc space narrowing and loss of signal. There is moderate central disc protrusion with mild ventral effacement of the thecal sac and there is mild facet arthropathy. There is no significant foraminal narrowing. L3-4: Unremarkable L2-3: Unremarkable L1-2: Unremarkable ADDITIONAL FINDINGS: None IMPRESSION: 1. Degenerative disc changes at L4-L5 and L5-S1. Please see above for detailed discussion by level. 2. At L5-S1, there is an annular tear associated with a small central disc protrusion without significant stenosis. 3. At L4-L5, there is a central disc protrusion with mild ventral effacement of the thecal sac. Dictated by: Dictated on workstation # [id number]
== END ==
LOC: RAD 09:02
PROVIDERS: ATTEND Nurse Practitioner Family
DX: M54.41 Lumbago with sciatica, right side (principal)
CPT/HCPCS: 72148

== ENCOUNTER → 2018-02-24 | Outpatient (CLI) | payer OTHER ==
[~2018-02-24] MED LIST changes: -FERR-74 PO; +FERR325T18 PO; -HYDR-3812 PO; -METF1000 PO; +METF10002 PO
--- NOTE | 2018-02-24 10:10 | Diagnostic Imaging Report ---
PROCEDURE: MRI lumbar spine. TECHNIQUE: Multiplanar, multisequence MRI of the lumbar spine was performed without contrast. INDICATION: Low back pain with bilateral leg pain. Comparison made with the previous study from 01/28/2017. FINDINGS: Alignment of the lumbar spine appears normal. The vertebral body heights are well-maintained. There is a stable small Schmorl's node within the superior endplate of L2. There is no marrow signal abnormality to suggest acute osseous injury or underlying osseous lesion. There is no MR evidence of a pars defect. The lower thoracic cord demonstrates no evidence of a signal abnormality or abnormal expansion. The conus terminates at a normal level. There is no significant lower thoracic canal stenosis. L1-2, L2-3 and L3-4 remain unremarkable. At L4-5 there is degeneration and annular disc bulging with a central disc protrusion. This is not significantly changed from the prior examination. This results in mild to moderate narrowing of central canal and moderate narrowing of the lateral recesses. There is no significant neural foraminal stenosis. At L5-S1 there is disc bulging with an annular tear and central disc protrusion. There is mild narrowing of central canal and both lateral recesses. There is no significant neuroforaminal stenosis. Paraspinal soft tissues unremarkable. Aorta normal in caliber. Kidneys are nonobstructed. IMPRESSION: 1. Normal height and alignment of lumbar spine without evidence of an acute osseous abnormality 2. Disc degeneration with disc herniations at L4-5 and L5-S1. These are not significantly changed compared to the prior examination. Most significant resultant stenosis is that of moderate narrowing of lateral recesses at the L4-5 level. Dictated by: Dictated on workstation # [id number]
== END ==
LOC: RAD 09:10
PROVIDERS: ATTEND Nurse Practitioner Family
DX: M48.07 Spinal stenosis, lumbosacral region (principal); M51.37 Other intervertebral disc degeneration, lumbosacral region; R73.09 Other abnormal glucose
CPT/HCPCS: 72148

== ENCOUNTER 2018-03-21 08:31 | Outpatient (RCR) | payer BC, OTHER ==
[~2018-03-21 08:31] MED LIST changes: +METF-399 PO; -METF10002 PO
== END 2018-06-07 15:53 | disposition home or self-care (01) ==
PROVIDERS: ATTEND Orthopaedic Surgery Orthopaedic Surgery of the Spine
DX: M46.1 Sacroiliitis, not elsewhere classified (principal); M51.26 Other intervertebral disc displacement, lumbar region

== ENCOUNTER → 2018-07-31 | Outpatient (CLI) | payer BC, OTHER ==
[~2018-07-31] MED LIST changes: +CATHETER FLUSH 10 ML SYR IV PRN; +IOHEXOL 350 MG/ML 100 ML (OMNIPAQUE 350) VIAL IV ONE; +NS 250 ML (IVPB) BAG IV ONE; +RECEIVED CONTRAST (Hold Metformin) IV SCH
--- NOTE | 2018-07-31 12:41 | Diagnostic Imaging Report ---
PROCEDURE: CT abdomen and pelvis with contrast. TECHNIQUE: Multiple contiguous axial images were obtained through the abdomen and pelvis after administration of intravenous contrast. INDICATION: Mass in right groin. FINDINGS: The previous CT of the abdomen/pelvis exam of 10/03/2016 noted diffuse enlargement of the uterus. This is felt to be related to the patient's status. There is no acute abnormality identified otherwise. On this exam, the uterus has a normal configuration and size. In the interval since the previous study however a 2.1 x 3.2 cm low density mass has developed along the uterine body of the right. I suspect this is a right ovarian cyst. If further study is desired, an ultrasound would be recommended. The left ovary is not well visualized. The urinary bladder is grossly unremarkable. As on the prior exam the appendix is not well identified. There are no indirect signs of acute appendicitis however. Reportedly, there is clinical concern regarding a palpable abnormality in the right groin. There is no evidence for a herniation of the bowel in this area. There is no mass or adenopathy identified either. The liver is homogeneous and not enlarged. The spleen, pancreas, adrenals, kidneys, gallbladder, aorta and inferior vena cava show no sign of an acute abnormality. The stomach is not well-distended and consequently difficult to assess. The lung bases are clear. The bone windows show no sign of a fracture or of a destructive lesion. IMPRESSION: 1. The uterus has decreased in size since the prior exam and now appears to be within normal limits. There is a 2.1 x 3.2 cm oval area of low density along the uterine body on the right. Most likely this is an ovarian cyst. Recommendations as above. 2. There is no acute abnormality of the abdomen or pelvis noted otherwise. 3. There is no sign of a hernia in the right groin. Dictated by: Dictated on workstation # [id number]
== END ==
LOC: RAD 11:47
PROVIDERS: ATTEND Nurse Practitioner Family
DX: R19.09 Other intra-abdominal and pelvic swelling, mass and lump (principal); R10.31 Right lower quadrant pain; R59.0 Localized enlarged lymph nodes
CPT/HCPCS: 74177

== ENCOUNTER → 2018-08-09 | Outpatient (CLI) | payer BC ==
[~2018-08-09] MED LIST changes: -CATHETER FLUSH 10 ML SYR IV PRN; -IOHEXOL 350 MG/ML 100 ML (OMNIPAQUE 350) VIAL IV ONE; -NS 250 ML (IVPB) BAG IV ONE; -RECEIVED CONTRAST (Hold Metformin) IV SCH
--- NOTE | 2018-08-09 08:09 | Diagnostic Imaging Report ---
INDICATION: Right lower quadrant pain. EXAMINATION: Pelvic sonogram. FINDINGS: Uterus measures 7.3 x 6.3 x 5.3 cm. Endometrial stripe is 3 mm. Ovaries are normal in size. There is a 2.4 cm simple cyst on the right ovary. Left ovary appears normal. There is no sonographic evidence for torsion. There is a trace amount of free fluid. IMPRESSION: Small right ovarian cyst. Trace amount of free fluid. Dictated by: Dictated on workstation # [id number]
== END ==
LOC: RAD 06:44
PROVIDERS: ATTEND Nurse Practitioner Family
DX: N83.201 Unspecified ovarian cyst, right side (principal)
CPT/HCPCS: 76830; 76856

== ENCOUNTER 2018-12-13 03:37 | Emergency (ER) | payer BC ==
[~2018-12-13] VITALS: Ht 167.6 cm; Wt 84.8 kg
[2018-12-13] MEDS ORDERED: ASPIRIN 81 MG CHEW (CHILDREN'S ASA) PO ONE (04:45)
[2018-12-13 04:47] LABS: BASOPHILS % (AUTO) 0 % (0-10); EOSINOPHILS # (AUTO) 0.1 10^3/uL (0.0-0.3); EOSINOPHILS % (AUTO) 2 % (0-10); HEMATOCRIT 39 % (35-52); HEMOGLOBIN 13.1 G/DL (11.5-16.0); LYMPHOCYTES % (AUTO) 32 % (12-44); MEAN CORPUSCULAR HEMOGLOBIN 30 PG (25-34); MEAN CORPUSCULAR HGB CONC 34 G/DL (32-36); MEAN CORPUSCULAR VOLUME 91 FL (80-99); MONOCYTES # (AUTO) 0.5 X 10^3 (0.0-1.0); MONOCYTES % (AUTO) 7 % (0-12); NEUTROPHILS # (AUTO) 3.6 X 10^3 (1.8-7.8); NEUTROPHILS % (AUTO) 58 % (42-75); PLATELET COUNT 273 10^3/uL (130-400); RED CELL DISTRIBUTION WIDTH 12.7 % (10.0-14.5); WHITE BLOOD COUNT 6.2 10^3/uL (4.3-11.0)
[2018-12-13 05:03] LABS: INR 0.9 (0.8-1.4); PROTHROMBIN TIME PATIENT 12.6 SEC (12.2-14.7)
[2018-12-13 05:14] LABS: ALANINE AMINOTRANSFERASE 18 U/L (0-55); ALBUMIN 4.4 GM/DL (3.2-4.5); ALKALINE PHOSPHATASE 74 U/L (40-136); AMYLASE 51 U/L (25-125); BILIRUBIN,TOTAL 0.2 MG/DL (0.1-1.0); BUN/CREATININE RATIO 15; CARBON DIOXIDE 24 MMOL/L (21-32); CHLORIDE 103 MMOL/L (98-107); CREATINE KINASE 49 U/L (29-168); CREATININE SERUM 0.84 MG/DL (0.60-1.30); GFR ESTIMATED > 60; GLUCOSE 97 MG/DL (70-105); LIPASE 21 U/L (8-78); POTASSIUM 3.9 MMOL/L (3.6-5.0); SODIUM 139 MMOL/L (135-145); TOTAL PROTEIN 7.6 GM/DL (6.4-8.2)
--- NOTE | 2018-12-13 05:49 | Diagnostic Imaging Report ---
CHEST 1 VIEW, AP/PA ONLY Indication: Body aches Comparison: 10/03/2016 Findings: No focal airspace disease in the visualized lungs. Please note that the posterior lower lobes are poorly evaluated by portable radiography. No pleural effusion or pneumothorax. Normal cardiomediastinal silhouette. Impression: No acute cardiopulmonary process by portable radiography. Dictated by: Dictated on workstation # [id number]
[2018-12-13] MEDS ORDERED: methylPREDNISolone 125 MG (Solu-MEDROL) VIAL IVP ONE (06:00)
[2018-12-13] MEDS ORDERED: METH4TAB PO (06:08)
[2018-12-13] MEDS ORDERED: CYCL10TA9 PO (06:08)
--- NOTE | 2018-12-13 06:08 | ED General ---
General Chief Complaint: General Problems/Pain Stated Complaint: PAIN IN MOUTH AND JAW Nursing Triage Note: AMBULATORY TO ED STATING SHE HAD NUMBNESS AND TINGLING IN LOWER JAW LAST WEEK. YESTERDAY HER HANDS FELT ACHY. THIS MORNING HER LEFT ARM AND HAND ARE ACHY AND LEFT SIDE OF JAW/FACE IS ACHY. STATES SHE RECENTLY HAD INFLAMMATORY MARKER LABS DRAWN WHICH WERE ELEVATED SO SHE FELT LIKE SHE SHOULD COME TO THE ER TO GET CHECKED OUT SINCE SHE WAS ACHY. DENIES TAKING ANY MEDICATION FOR TX OF ACHINESS/PAIN. 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 NO PARESTHESIAS TO NECK OR ARM OR HANDS NO MOTOR DEFICITS ANYWHERE NO VISION CHANGES NO PROBLEMS WITH SWALLOWING AND NO BITING TONGUE, ETC. TONGUE AND LIPS ARE NOT NUMB/TINGLY NO DENTAL PAIN NO HEADACHE NO DIZZINESS NO CHANGES IN HEARING OR EAR PAIN STATES SYMPTOMS "COME IN WAVES" AND ONLY SYMPTOM RIGHT NOW IS SLIGHT TINGLING TO LEFT JAW PT STATES 1 WEEK AGO, AFTER SLEEPING ON HER RIGHT SIDE, SHE WOKE UP WITH TINGLING/NUMBNESS TO LEFT JAW, BUT DID WENT AWAY. NO MOTOR DEFICITS. DID NOT HAVE OTHER SYMPTOMS AT THAT TIME STATES "I FEEL OFF" STATES "I FEEL LOW" STATES "I FEEL ALMOST SICK" --BUT DENIES NAUSEA AND UNABLE TO ELABORATE FURTHER PT REPEATS MULTIPLE TIMES THAT "I HAVE BILATERAL SI JOINTS AND PELVIC FLOOR" SINCE OF HER CHILD IN 2017 STATES "I GENERALLY DON'T FEEL WELL" SINCE 2017 STATES "I ALSO HAVE INFLAMMATORY MARKERS TWICE AND THEY WERE ELEVATED BOTH TIMES " LMP BEGAN TODAY, NORMAL. ON OCP'S PCP: DR. MONTEZ Allergies and Home Medications Allergies Coded Allergies: bupropion (Verified Allergy, Unknown, 09/14/16) NERVE AND MUSCLE PAIN naltrexone (Verified Allergy, Unknown, 09/14/16) NERVE AND MUSCLE PAIN Home Medications Cyclobenzaprine HCl 10 Mg Tablet, 10 MG PO Q8H Prescribed by: NGA CARD on 12/13/18607 Methylprednisolone 4 Mg Tab.ds.pk, 4 MG PO UD Prescribed by: NGA CARD on 12/13/18607 Patient Home Medication List Home Medication List Reviewed: Yes Review of Systems Review of Systems Constitutional: see HPI; No chills, No diaphoresis, No dizziness, No fever; malaise EENTM: see HPI; No hearing loss, No ear pain, No double vision, No eye pain, No tearing, No vision loss, No dental problems, No hoarseness, No mouth pain, No mouth swelling, No epistaxis, No nose congestion, No nose pain, No throat pain, No throat swelling Respiratory: no symptoms reported; No cough, No short of breath Cardiovascular: no symptoms reported; No chest pain, No edema, No palpitations , No syncope, No vascular heart diseas Gastrointestinal: no symptoms reported; No abdominal pain, No nausea, No vomiting Genitourinary: no symptoms reported : No LMP: Dec 12, 2018 Musculoskeletal: see HPI Skin: no symptoms reported; No rash Psychiatric/Neurological: See HPI; Denies Headache; Numbness, Paresthesia; Denies Seizure; Tingling; Denies Weakness Hematologic/Lymphatic: No Symptoms Reported Immunological/Allergic: no symptoms reported Past Xfqciky-Ldrykt-Uzzmru Hx Patient Social History Alcohol Use: Rarely Uses Recreational Drug Use: No Smoking Status: Former Smoker (< 1 PPD, QUIT 2013) Type Used: Cigarettes Recent Foreign Travel: No Contact w/Someone Who Travel: No Recent Infectious Disease Expo: No Recent Hopitalizations: No Immunizations Up To Date Tetanus Booster (TDap): Less than 5yrs Date of Influenza Vaccine: Jul 18, 2016 Seasonal Allergies Seasonal Allergies: No Past Medical History Surgeries: Yes (D&C, LEEP) Respiratory: No Cardiac: Yes High Cholesterol Neurological: No Last Menstrual Period: Dec 12, 2018 Reproductive Disorders: Yes (CERVICAL DYSPLASIA) Female Reproductive Disorders: Denies, Ovarian Cyst Sexually Transmitted Disease: No HIV/AIDS: No Genitourinary: No Gastrointestinal: No Musculoskeletal: No Endocrine: Yes (GESTATIONAL DIABETES) HEENT: No Loss of Vision: Denies Hearing Impairment: Denies Cancer: No Psychosocial: Yes Depression Integumentary: No Blood Disorders: Yes (ANEMIA-ON IRON IN PAST) Adverse Reaction/Blood Tranf: No Family Medical History Arthritis Grandparent's (Paternal Grandmother) Colon cancer Grandparent's (Maternal Grandfather) Diabetes mellitus Grandparent's (Maternal Grandmother) Fibrocystic disease of breast Grandparent's (Maternal Grandmother) Hypertension Grandparent's (Maternal Grandmother) Psychosocial problem 19 FATHER (Depression, Anxiety) Grandparent's (Paternal Grandmother-Depression, Anxiety) No Family History of: AIDS Abdominal aortic aneurysm Titus's disease Alcoholism Alzheimer's disease Aphasia Asthma Cancer of mouth Cardiovascular disease Cataracts Completed stroke Congenital disease Congenital heart disease Coronary thrombosis Cystic fibrosis Deafness or hearing loss Dementia Drug abuse Dysphasia Gastroenteritis Glaucoma Headache disorder Hypercholesterolemia Infertility Kidney disease Myocardial infarction Neoplasm Not obtainable due to adoption Osteoporosis Parkinson's disease Prostate cancer Respiratory disorder Seizure disorder Severe allergy Thyroid disease Tuberculosis Visual disorder Physical Exam Vital Signs Vital Signs - First Documented 12/13/18 12/13/18 03:50 06:22 Temp 97.7 Pulse 108 Resp 18 B/P (MAP) 144/73 (96) Pulse Ox 98 Capillary Refill : Less Than 3 Seconds Height, Weight, BMI Height: 5'6.00" Weight: 187lbs. 11.6oz. 84.251207ru; 0.4 BMI Method:Stated General Appearance: No Apparent Distress, WD/WN HEENT: PERRL/EOMI, TMs Normal, Normal ENT Inspection, Pharynx Normal, Moist Mucous Membranes, Other (TENDERNESS OVER LEFT TMJ AND LEFT MANDIBLE, NO TRISMUS , NO CLICKING/POPPING, HAS SENSATION BUT STATES IT FEELS A LITTLE DIFFERENT ON THE LEFT LOWER JAW AREA. MAXILLARY AREA AND ABOVE ARE NOT INVOLVED. TONGUE MIDLINE. NO FACIAL DROOP. NO WATERING/TEARING OF EYES) Neck: Full Range of Motion, Supple; No Limited Range of Motion, No Lymphadenopathy (L), No Lymphadenopathy (R); Tender Lateral; No Tender Midline, No Thyromegaly; Other (TENDERNESS OVER LEFT SCM AND LATERAL CERVICAL MUSCLES WITH TENDERNESS AND SPASMS TO LEFT CERVICAL PARAVERTEBRAL MUSCLES--PALPATION REPRODUCES PAIN ) Respiratory: Chest Non Tender, Normal Breath Sounds, No Accessory Muscle Use, No Respiratory Distress Cardiovascular: Regular Rate, Rhythm, No Edema, No Gallop, No JVD, No Murmur, Normal Peripheral Pulses Gastrointestinal: Normal Bowel Sounds, No Organomegaly, No Pulsatile Mass, Non Tender, Soft Back: Normal Inspection, No CVA Tenderness, No Vertebral Tenderness Extremity: Normal Capillary Refill, Normal Inspection, Normal Range of Motion, Non Tender, No Calf Tenderness, No Pedal Edema Neurologic/Psychiatric: Alert, Oriented x3, No Motor/Sensory Deficits, Normal Mood/Affect, trimmer tailer II-XII Norm as Tested; No Abnormal Cerebellar Tests, No Abnormal Gait, No Aphasia, No EOM Palsy, No Facial Droop, No Motor Weakness, No Sensory Deficit Skin: Normal Color, Warm/Dry; No Rash Progress/Results/Core Measures Suspected Sepsis Recent Fever Within 48 Hours: No Infection Criteria Present: None New/Unexplained Altered Menta: No Sepsis Screen: No Definite Risk SIRS Temperature:97.7 Pulse: 108 Respiratory Rate: 18 Laboratory Tests 12/13/18 04:40: White Blood Count 6.2 Blood Pressure 144 /73 Mean: 96 Laboratory Tests 12/13/18 04:40: Creatinine 0.84, INR Comment 0.9, Platelet Count 273, Total Bilirubin 0.2 Results/Orders Lab Results Laboratory Tests Test 12/13/18 04:40 Range/Units White Blood Count 6.2 4.3-11.0 10^3/uL Red Blood Count 4.31 L 4.35-5.85 10^6/uL Hemoglobin 13.1 11.5-16.0 G/DL Hematocrit 39 35-52 % Mean Corpuscular Volume 91 80-99 FL Mean Corpuscular Hemoglobin 30 25-34 PG Mean Corpuscular Hemoglobin Concent 34 32-36 G/DL Red Cell Distribution Width 12.7 10.0-14.5 % Platelet Count 273 130-400 10^3/uL Mean Platelet Volume 10.0 7.4-10.4 FL Neutrophils (%) (Auto) 58 42-75 % Lymphocytes (%) (Auto) 32 12-44 % Monocytes (%) (Auto) 7 0-12 % Eosinophils (%) (Auto) 2 0-10 % Basophils (%) (Auto) 0 0-10 % Neutrophils # (Auto) 3.6 1.8-7.8 X 10^3 Lymphocytes # (Auto) 2.0 1.0-4.0 X 10^3 Monocytes # (Auto) 0.5 0.0-1.0 X 10^3 Eosinophils # (Auto) 0.1 0.0-0.3 10^3/uL Basophils # (Auto) 0.0 0.0-0.1 10^3/uL Prothrombin Time 12.6 12.2-14.7 SEC INR Comment 0.9 0.8-1.4 Activated Partial Thromboplast Time 30 24-35 SEC Sodium Level 139 135-145 MMOL/L Potassium Level 3.9 3.6-5.0 MMOL/L Chloride Level 103 98-107 MMOL/L Carbon Dioxide Level 24 21-32 MMOL/L Anion Gap 12 5-14 MMOL/L Blood Urea Nitrogen 13 7-18 MG/DL Creatinine 0.84 0.60-1.30 MG/DL Estimat Glomerular Filtration Rate > 60 BUN/Creatinine Ratio 15 Glucose Level 97 70-105 MG/DL Calcium Level 10.0 8.5-10.1 MG/DL Corrected Calcium 9.7 8.5-10.1 MG/DL Magnesium Level 2.0 1.8-2.4 MG/DL Total Bilirubin 0.2 0.1-1.0 MG/DL Aspartate Amino Transf (AST/SGOT) 17 5-34 U/L Alanine Aminotransferase (ALT/SGPT) 18 0-55 U/L Alkaline Phosphatase 74 40-136 U/L Total Creatine Kinase 49 29-168 U/L Creatine Kinase MB 1.0 <6.6 NG/ML Myoglobin 28.7 10.0-92.0 NG/ML Troponin I < 0.028 <0.028 NG/ML B-Type Natriuretic Peptide < 10.0 <100.0 PG/ML Total Protein 7.6 6.4-8.2 GM/DL Albumin 4.4 3.2-4.5 GM/DL Amylase Level 51 25-125 U/L Lipase 21 8-78 U/L TSH [place] Testing 2.84 0.35-4.94 UIU/ML Serum Test, Qualitative NEGATIVE NEGATIVE My Orders Orders - NGA CARD DO Cbc With Automated Diff (12/13/18 04:31) Magnesium (12/13/18 04:31) Chest 1 View, Ap/Pa Only (12/13/18 04:31) Ekg Tracing (12/13/18 04:31) Cardiac Profile 1 (12/13/18 04:31) Comprehensive Metabolic Panel (12/13/18 04:31) Myoglobin Serum (12/13/18 04:31) Protime With Inr (12/13/18 04:31) Partial Thromboplastin Time (12/13/18 04:31) Monitor-Rhythm Ecg Trace Only (12/13/18 04:31) Saline Lock/Iv-Start (12/13/18 04:31) Creatine Kinase (12/13/18 04:31) Creatine Kinase Mb (12/13/18 04:31) Lipase (12/13/18 04:31) Amylase (12/13/18 04:31) BNP (12/13/18 04:31) Aspirin Chewable Tablet (Baby Aspirin Ch (12/13/18 04:45) Hcg,Qualitative Serum (12/13/18 04:31) Thyroid Analyzer (12/13/18 04:31) Methylprednisolone Sod Succ (Solu-Medrol (12/13/18 06:00) Medications Given in ED Current Medications Medications Dose Ordered Sig/Mannie Route Start Time Stop Time Status Last Admin Dose Admin Aspirin 324 mg ONCE ONCE PO 12/13/18 04:45 12/13/18 04:47 DC 12/13/18 04:38 324 MG Methylprednisolone Sodium Succinate 125 mg ONCE ONCE IVP 12/13/18 06:00 12/13/18 06:01 DC 12/13/18 06:10 125 MG Vital Signs/I&O 12/13/18 12/13/18 03:50 06:22 Temp 97.7 97.7 Pulse 108 99 Resp 18 18 B/P (MAP) 144/73 (96) 119/71 (87) Pulse Ox 98 Capillary Refill : Less Than 3 Seconds Blood Pressure Mean: 96 Progress Note : Progress Note UNEVENTFUL ER STAY ONLY MINIMAL "FUNNY FEELING" TO LEFT JAW AREA--" JUST A LITTLE NUMB AND TINGLY" --MUCH BETTER THAN EARLIER DENIES NECK OR ARM PAIN AT DISMISSAL DENIES HAND PAIN AT DISMISSAL ECG Initial ECG Impression Date: Dec 13, 2018 Initial ECG Impression Time: 04:42 Initial ECG Rate: 88 Initial ECG Rhythm: Normal Sinus Initial ECG Comparisson: No Previous ECG Available Diagnostic Imaging Comments CXR--NO ACUTE PROCESS, PER RADIOLOGIST REPORT @ 0600 Reviewed: Reviewed by Me Departure Impression Primary Impression: Left facial pain Additional Impressions: Numbness and tingling of left side of face LEFT LATERAL NECK PAIN Left arm pain Bilateral hand pain Disposition: 01 HOME, SELF-CARE Condition: Improved Departure-Patient Inst. Referrals: UMESH MONTEZ MD (PCP/Family) Primary Care Physician Patient Instructions: Generalized Neck Pain (DC), Hand Pain (DC), Muscle and Bone Pain (DC), Temporomandibular Joint (TMJ) Disorders (DC) Add. Discharge Instructions: ALTERNATE ICE AND HEAT TO SORE AREAS AT 20 MINUTE INTERVALS FOLLOW UP WITH DR. MONTEZ THIS WEEK FOR FURTHER CARE All discharge instructions reviewed with patient and/or family. Voiced understanding. Scripts Methylprednisolone (Medrol) 4 Mg Tab.ds.pk 4 MG PO UD, #1 PKG Prov: NGA CARD DO 12/13/18 Cyclobenzaprine HCl (Cyclobenzaprine HCl) 10 Mg Tablet 10 MG PO Q8H, #15 TAB Prov: NGA CARD DO 12/13/18 NGA CARD DO Dec 13, 2018 06:08
[2018-12-13 06:22] VITALS: BP 119/71
== END 2018-12-13 06:23 | disposition home or self-care (01) ==
LOC: EDUNIT# 03:37 → ER 03:41
DX: R51 Headache (principal); R20.0 Anesthesia of skin; R20.2 Paresthesia of skin; M54.2 Cervicalgia; M79.641 Pain in right hand; M79.642 Pain in left hand; E78.00 Pure hypercholesterolemia, unspecified; F32.9 Major depressive disorder, single episode, unspecified; D64.9 Anemia, unspecified; Z87.448 Personal history of other diseases of urinary system; Z82.49 Family history of ischemic heart disease and other diseases of the circulatory system; Z88.8 Allergy status to other drugs, medicaments and biological substances; Z79.52 Long term (current) use of systemic steroids; Z87.891 Personal history of nicotine dependence
CPT/HCPCS: 36415; 71045; 80053; 82150; 82550; 82553; 83690; 83735; 83874; 83880; 84443; 84484; 84703; 85025; 85610; 85730; 93005; 93041

== ENCOUNTER → 2019-04-01 | Outpatient (CLI) | payer BC ==
[~2019-04-01] MED LIST changes: +CYCL10TA9 PO; +METH4TAB PO
--- NOTE | 2019-04-01 10:07 | Diagnostic Imaging Report ---
PROCEDURE: MR imaging cervical spine without contrast. TECHNIQUE: Multiplanar, multisequence MR imaging of the cervical spine was performed without contrast. INDICATION: Chronic spine pain. Tingling and numbness in extremities. COMPARISON: None. FINDINGS: No acute fracture or dislocation is seen in the cervical spine. There is straightening of the cervical spine, likely due to positioning. The vertebral body heights and disc spaces are well maintained. The bone marrow signal is unremarkable. The craniocervical junction is maintained. The cervical spinal cord demonstrates normal intrinsic signal. No epidural collections are seen. Included views of the brainstem and posterior fossa demonstrate no acute abnormalities. Minimal degenerative changes are seen in the cervical spine, with small posterior disc bulges at C4-C5 and C6-C7 without significant spinal canal or foraminal stenosis. Soft tissues of neck are unremarkable. The thyroid has a normal appearance. Impression: 1. No acute fracture or dislocation of the cervical spine. No significant degenerative changes. Dictated by: Dictated on workstation # [id number]
== END ==
LOC: RAD 08:37
PROVIDERS: ATTEND Nurse Practitioner Family
DX: M54.2 Cervicalgia (principal); M54.5 Low back pain; M54.6 Pain in thoracic spine
CPT/HCPCS: 72141

== ENCOUNTER → 2019-04-02 | Outpatient (CLI) | payer BC ==
--- NOTE | 2019-04-02 09:33 | Diagnostic Imaging Report ---
EXAM: MRI THORACIC SPINE W/O CON INDICATION: Back pain. Numbness of extremities. COMPARISON: None. FINDINGS: Normal alignment. Vertebral body heights are preserved. Normal bone marrow signal. Mild degenerative endplate changes including small disc protrusions at T6-T7 and T7-T8 results in no substantial spinal canal narrowing. No high-grade neural foraminal narrowing. No abnormal signal in the thoracic spinal cord. The visualized paravertebral soft tissues are unremarkable. IMPRESSION: Mild spondylotic changes in the thoracic spine. No high-grade neural impingement. No acute osseous findings. No abnormal signal in the thoracic spinal cord. Dictated by: Dictated on workstation # [id number]
--- NOTE | 2019-04-02 10:12 | Diagnostic Imaging Report ---
PROCEDURE: MRI lumbar spine. TECHNIQUE: Multiplanar, multisequence MRI of the lumbar spine was performed without contrast. INDICATION: Chronic lower back pain with bilateral leg pain and numbness. Tingling in the pelvis. COMPARISON: 02/24/2018 FINDINGS: For the purposes of this exam, last well-formed disc space is noted to be L5-S1 level. Static alignment is maintained. There is no significant anteroretrolisthesis. There is no evidence of jumped facets. Vertebral body heights are maintained. There is no evidence of acute fracture. Marrow signal is normal throughout. Note is made of old Schmorl's node involving superior endplate of L2. Evaluation of intervertebral disc spaces demonstrates mild multilevel height loss. There are also multilevel anterior and posterior areas of disc bulging/protrusion. Visualized portions of distal cord are unremarkable. Conus terminates at approximately the L1 level. No abnormal intrathecal filling defects are seen. Pre-and paravertebral soft tissue structures are unremarkable. Axial images demonstrate the following: L1-L2: There is small central posterior disc protrusion just to the left lateral midline. There is, however, no significant spinal canal or neural foraminal stenosis. L2-L3: There is slight broad-based posterior disc bulge. This results in minimal effacement of anterior thecal sac. There is otherwise no significant spinal canal or neural foraminal stenosis. L3-L4: There is no large disc bulge or focal protrusion. There is no significant spinal canal or neural foraminal stenosis. L4-L5: There is central posterior disc protrusion superimposed on broad-based posterior disc bulge. There is also bilateral ligamentum flavum laxity and facet arthropathy. As a result, there is moderate spinal canal stenosis. There is minimal narrowing of the bilateral neural foramen. L5-S1: There is small central posterior disc protrusion. As a result, there is mild effacement of anterior thecal sac. There is no significant neural foraminal stenosis. IMPRESSION: 1. Multilevel degenerative changes of the lumbar spine, greatest at the L4-L5 level as described above. 2. No acute fracture or dislocation. Dictated by: Dictated on workstation # [id number]
== END ==
LOC: RAD 08:31
PROVIDERS: ATTEND Nurse Practitioner Family
DX: M47.814 Spondylosis without myelopathy or radiculopathy, thoracic region (principal); M47.816 Spondylosis without myelopathy or radiculopathy, lumbar region; M51.27 Other intervertebral disc displacement, lumbosacral region; M46.86 Other specified inflammatory spondylopathies, lumbar region; M48.061 Spinal stenosis, lumbar region without neurogenic claudication; M51.36 Other intervertebral disc degeneration, lumbar region
CPT/HCPCS: 72146; 72148

== ENCOUNTER 2023-02-15 06:25 | Outpatient (CLI) | payer BC, MEDICAID ==
[~2023-02-15] VITALS: Ht 165.1 cm; Wt 79.8 kg
[~2023-02-15 06:25] MED LIST changes: +CYCL10TA25 PO; -CYCL10TA9 PO; +GLBR5T PO
[2023-02-15] MEDS ORDERED: BUSP10TA95 PO (17:31)
[2023-02-15] MEDS ORDERED: HYDR-3584 PO (17:31)
[2023-02-15] MEDS ORDERED: MAGN100T5 PO (17:31)
== END 2023-02-15 17:37 | disposition home or self-care (01) ==
LOC: PREOP 06:25
PROVIDERS: ATTEND Surgery
DX: Z01.818 Encounter for other preprocedural examination (principal)

== ENCOUNTER 2023-02-24 12:13 | Day surgery (SDC) | payer BC, MEDICAID ==
[~2023-02-24] VITALS: Ht 165.1 cm; Wt 79.8 kg
[~2023-02-24 12:13] MED LIST changes: +BUSP10TA95 PO; +HYDR-3584 PO; +MAGN100T5 PO
[2023-02-24] MEDS ORDERED: LACTATED RINGERS 1,000 ML IV STA (12:30)
[2023-02-24 12:40] VITALS: BP 87/63
--- NOTE | 2023-02-24 13:03 | Progress Note-Pre Operative ---
Pre-Operative Progress Note Date H&P Reviewed: Feb 24, 2023 Time H&P Reviewed: 13:03 History & Physical: H&P Reviewed, Patient Examed, No changes noted Pre-Operative Diagnosis: change in bowel habits, rectal bleeding MONA IBARRA DO Feb 24, 2023 13:03
[2023-02-24] MEDS ORDERED: PROPOFOL INJECTION 50 ML IV ONE (13:09)
--- NOTE | 2023-02-24 13:33 | Progress Note-Post Operative ---
Post-Operative Progess Note Surgeon (s)/Animal Control Licensing Worker (s) Surgeon MONA IBARRA DO Animal Control Licensing Worker: na Pre-Operative Diagnosis change in bowel habits, rectal bleeding Post-Operative Diagnosis normal colon Procedure & Operative Findings Date of Procedure 02/24/23 Procedure Performed/Findings colonoscopy Anesthesia Type per keg filler Estimated Blood Loss Estimated blood loss (mL): none Specimens/Packing Specimens Removed na MONA IBARRA DO Feb 24, 2023 13:33
[2023-02-24 13:34] VITALS: BP 92/51
--- NOTE | 2023-02-24 13:34 | Discharge Inst-Simple/Standard ---
Discharge Inst-Standard Patient Instructions/Follow Up Plan of Care/Instructions/FU: 3-4 weeks Jose G Activity as Tolerated: Yes Discharge Diet: Regular Diet (high fiber) MONA IBARRA DO Feb 24, 2023 13:33
[2023-02-24 13:40] VITALS: BP 93/52
[2023-02-24 14:05] VITALS: BP 93/52
--- NOTE | 2023-02-24 14:07 | Anesthesia-General Post-Op ---
MAC Patient Condition Mental Status/LOC: Same as Preop Cardiovascular: Satisfactory Nausea/Vomiting: Absent Respiratory: Satisfactory Pain: Controlled Complications: Absent Post Op Complications Complications None Follow Up Care/Instructions Patient Instructions None needed. Anesthesiology Discharge Order Discharge Order Patient is doing well, no complaints, stable vital signs, no apparent adverse anesthesia problems. No complications reported per nursing. AMADOR GALLAGHER CRNA Feb 24, 2023 14:06
--- NOTE | 2023-02-24 21:15 | OPERATIVE REPORT ---
DATE OF SERVICE: 02/24/2023 PREOPERATIVE DIAGNOSES: Change in bowel habits, rectal bleeding. POSTOPERATIVE DIAGNOSIS: Normal colon. PROCEDURE: Colonoscopy. SURGEON: Mona Araiza DO ANESTHESIA: Per INSTRUMENTATION TECHNOLOGIST. ESTIMATED BLOOD LOSS: None. COMPLICATIONS: None. INDICATIONS: The patient is a 37-year-old female with rectal bleeding, change in bowel habits. She also has family history of colon cancer. She understands risks and benefits of procedure and wished to proceed with procedure. Consent was signed in chart. DESCRIPTION OF PROCEDURE: The patient was taken to endoscopy suite, placed in left lateral recumbent position. Timeout was performed. Digital rectal exam was performed. No palpable polyps, masses or ulcerations. Scope was inserted in the rectum, advanced all the way to the cecum with minimal difficulty. Prep was adequate. Scope was slowly retracted back. No polyps, masses or ulcerations in the cecum, ascending, transverse, descending and sigmoid colon. Once in the rectum, scope was retroflexed noting no other pathology. Scope was returned to its normal position, slowly withdrawn until completely removed, noting no other pathology. RECOMMENDATION: The patient with family history of colon cancer, would recommend repeat colonoscopy in 5 years. She has had a change in bowel habits. I think this is possibly dietary and would recommend high-fiber diet. She will return to clinic in 3-4 weeks to see how she is doing. No evidence of any rectal bleeding, could have been a healed fissure, possibly, but if has any return of bleeding should be reevaluated at that time. Job ID: [id number] DocumentID: [id number] Dictated Date: 02/24/2023 13:36:18 Academic Support Director Date: 02/24/2023 21:14:00 Dictated By: MONA ARAIZA DO
== END 2023-02-24 14:09 | disposition home or self-care (01) ==
LOC: ENDO 12:13
PROVIDERS: ATTEND Surgery
DX: K62.5 Hemorrhage of anus and rectum (principal); R19.4 Change in bowel habit; Z80.0 Family history of malignant neoplasm of digestive organs; Z87.891 Personal history of nicotine dependence